=== PATIENT | male | born 1935 | race Caucasian/White ===

== ENCOUNTER 2018-03-04 07:36 | Day surgery (SDC) | payer MEDICARE ==
[2018-02-25 15:30] VITALS: BMI 21.4
[~2018-03-04 07:36] MED LIST: LACTATED RINGERS 1,000 ML IV SCH
[2018-03-04] MEDS: CYCLOPENTOLATE 1% OPHTH SOLN 2 ML BTL OP ONE ×3 (08:47→09:07)
[2018-03-04] MEDS: PHENYLEPHRINE 10% OPHTH DROPS 5 ML BTL OP ONE ×3 (08:51→09:11)
[2018-03-04] MEDS: KETOROLAC 0.5% OPHTH DROPS 5 ML BTL OP ONE ×3 (08:54→09:14)
[2018-03-04] MEDS ORDERED: LIDOCAINE 1% 20 ML VIAL (10MG/ML) FOR IV START INTRADERMA ONE (08:56)
[2018-03-04 08:59] VITALS: PULSE 60; RESP 16; TEMP 97.6
[2018-03-04 08:59] LABS: Glucose,Whole Blood 130 mg/dL (75-99)
[2018-03-04] MEDS ORDERED: PROPOFOL 10 MG/ML 20 ML VIAL IV ONE (09:38)
[2018-03-04] MEDS ORDERED: HYALURONATE SODIUM INTRAOCULAR 1 EACH SYRINGE (10MG/ML) INTRAOCULA ONE (09:39)
[2018-03-04] MEDS ORDERED: BALANCED SALT IRRIG SOLN COMB2 15 ML IRRIG.SOLN IRRIGATION ONE (09:39)
[2018-03-04] MEDS ORDERED: EPINEPHrine (PF) 0.5 ML in BALANCED SALT IRRIG SOLN COMB2 500 ML IRRIGATION ONE (09:40)
--- NOTE | 2018-03-04 10:02 | P.OP ---
Date of Procedure: 03/04/18 Procedure(s) Performed: PREOPERATIVE DIAGNOSIS: Cataract, left eye. POSTOPERATIVE DIAGNOSIS: Cataract, left eye. OPERATION: Phacoemulsification cataract, left eye. DESCRIPTION OF PROCEDURE: The patient was taken to the preoperative holding area. Intravenous Propofol was given so as to bring about adequate sedation. The following mixture was given for local anesthesia: 5 mL of 2% lidocaine, 5 mL of 0.75% Marcaine, and 1 mL of Wydase. Approximately 4 mL was injected in the retrobulbar space of the surgical eye. Additional 1 mL was then directed to the temporal area of the surgical eye. This was performed to allow adequate neurological block of the facial muscles. The patient was revived and then taken into the operative room. The patient was prepped and draped in the usual sterile manner for the operative eye. A lid speculum was put into position. The conjunctiva was resected back from the limbus in the 12 o'clock position. Bleeding was controlled with electrocautery. A #69 blade was then used and a half-thickness scleral incision approximately 1-mm posterior to the limbus was made on bare sclera. This was shelved in the clear cornea using a crescent knife. Next a 15-degree blade was used to make a stab incision at the 3 o' clock position at the corneolimbal interface. Keratome blade was then used and the superior wound was extended into the anterior chamber. Viscoelastic was injected into the anterior chamber and to maintain its form. Next, a cystotome was used and a continuous anterior capsulotomy was made without difficulty. Hydrodissection using a blunt cannula and BSS was performed. Phaco probe was then employed and a groove extending from 12 to 6 o'clock in the lens was created. A Austin wand was used through the stab incision so as to perform a divide and conquer technique. Next an irrigation aspiration probe was utilized and any residual cortex was removed from the eye. Again, viscoelastic was injected into the anterior chamber. An Nicoáls posterior chamber lens implant was placed in the cartridge and injected into the anterior chamber without difficulty. The [employer] Limited[employer] hook was utilized to spin the lens into position and this was again performed without any difficulty. The irrigation and aspiration probe was again employed and any residual viscoelastic was removed from the eye. Then BSS was injected into the limbal stab incision and the anterior chamber re-inflated. The conjunctiva was reapproximated using electrocautery. One drop of 0.25% Timoptic was placed over the corneal along with TobraDex ophthalmic ointment. Two sterile patches and a Ortiz eye shield were taped into position. The patient was transported to the recovery room in stable condition. Pathology: none sent Condition: stable Disposition: same day
[2018-03-04 10:27] VITALS: BP 147/74
[2018-03-04] MEDS ORDERED: GENTAMICIN/PREDNISOL AC OPHTH OINT 3.5GM OPHTHALMIC ONE (23:00)
[2018-03-04] MEDS ORDERED: TIMOLOL 0.5% OPHTH DROPS 5 ML BTL OP ONE (23:00)
[2018-03-04] MEDS ORDERED: BUPIVACAINE (PF) 0.75% 5 ML, HYALURONIDASE, HUMAN RECOMB 150 UNIT, LIDOCAINE 2% (PF) 10... MISCELLANE ONE ×3 (23:00)
== END 2018-03-04 11:00 | disposition home or self-care (01) ==
LOC: OR 07:36
PROVIDERS: ATTEND Ophthalmology
DX: H26.9 Unspecified cataract (principal); E11.9 Type 2 diabetes mellitus without complications; I11.0 Hypertensive heart disease with heart failure; I50.9 Heart failure, unspecified; Z88.1 Allergy status to other antibiotic agents; Z83.3 Family history of diabetes mellitus; Z95.0 Presence of cardiac pacemaker; Z79.01 Long term (current) use of anticoagulants; Z79.899 Other long term (current) drug therapy
CPT/HCPCS: 66984; V2632; J3470; J2001; J0171; J2704

== ENCOUNTER → 2020-10-10 | Outpatient (CLI) | payer MEDICARE | END | disposition home or self-care (01) | LOC: LABWHC1 13:45 | PROVIDERS: ATTEND Urology | DX: R97.20 Elevated prostate specific antigen [PSA] (principal) | CPT/HCPCS: 36415; 84153 ==

== ENCOUNTER → 2021-10-04 | Outpatient (CLI) | payer MEDICARE ==
--- NOTE | 2021-10-04 16:49 | XR ---
EXAMINATION TYPE: XR chest 2V DATE OF EXAM: 10/04/2021 COMPARISON: Prior chest x-ray November 07, 2018 HISTORY: Increasing shortness of breath with exertion TECHNIQUE: Frontal and lateral views of the chest are obtained. FINDINGS: Cardiac silhouette size remains within normal limits. Multi lead pacemaker redemonstrated. New small right pleural effusion including fluid extending into the major fissure in the right lower lobe airspace opacity on 2 views . Left lung is clear without pleural effusion. Underlying scoliosis is present. IMPRESSION: New small right pleural effusion with right lower lobe acute infiltrate and/or atelectas is.
== END | disposition home or self-care (01) ==
LOC: RADXRMAIN 16:27
PROVIDERS: ATTEND Internal Medicine
DX: J90 Pleural effusion, not elsewhere classified (principal); R91.8 Other nonspecific abnormal finding of lung field
CPT/HCPCS: 71046

== ENCOUNTER → 2021-10-30 | Outpatient (CLI) | payer MEDICARE ==
--- NOTE | 2021-10-31 18:27 | CA ---
Transthoracic Echo Report Name: Franklin Campuzano Age: 86 Gender: M : 1935 Exam Date: 10/30/2021 15:01 Exam Location: [facility] Ht (in): 77 Wt (lb): 177 Ordering Physician: Wanda Hou MD Attending/Referring Phys: Wanda Hou MD Senior Analyst Lisset Anton RDCS Procedure CPT: Indications: I42.0 Dilated Cardiomyopathy Cardiac Hx: No cardiac hx Technical Quality: Very technically difficult study Contrast 1: Lumason Total Dose (mL): 1 Contrast 2: Total Dose (mL): MEASUREMENTS (Male / Female) Normal Values 2D ECHO LV Diastolic Diameter PLAX 3.8 cm 4.2 - 5.9 / 3.9 - 5.3 cm LV Systolic Diameter PLAX 2.5 cm IVS Diastolic Thickness 1.1 cm 0.6 - 1.0 / 0.6 - 0.9 cm LVPW Diastolic Thickness 1.2 cm 0.6 - 1.0 / 0.6 - 0.9 cm LV Relative Wall Thickness 0.6 FINDINGS Left Ventricle Left ventricular ejection fraction is estimated at 55-60 %. Left ventricular cavity size normal. Lumason used to visualize wall motion. Right Ventricle Right ventricle not well visualized. Right Atrium Right atrium not well visualized. Left Atrium Left atrium not well visualized. Mitral Valve Mitral valve not well visualized. Aortic Valve Aortic valve not well visualized. Tricuspid Valve Tricuspid valve not well visualized. Pulmonic Valve Pulmonic valve not well visualized. Pericardium No pericardial effusion. Aorta Aortic root and proximal ascending aorta not well visualized. CONCLUSIONS Technically difficult study with limited views. Echo contrast was used and systolic function is normal. Other cardiac structures are not well visualized. Cannot comment upon the rest of the structures Previewed by: Dr. West Valentin MD (Electronically Signed) Final Date: 31 October 2021 18:26
== END | disposition home or self-care (01) ==
LOC: RADECHMAIN 14:56
PROVIDERS: ATTEND Internal Medicine
DX: I42.0 Dilated cardiomyopathy (principal)
CPT/HCPCS: C8929; Q9950; 93306

== ENCOUNTER 2022-01-25 19:28 | Emergency (ER) | payer MEDICARE ==
[2022-01-25] MEDS ORDERED: DEXAMETHASONE SOD PHOSPHATE 10 MG/ML 1 ML VIAL IM STA (21:23)
[2022-01-25] MEDS ORDERED: IBUPROFEN 800 MG TAB PO STA (21:23)
[2022-01-25] MEDS ORDERED: ACETAMINOPHEN TAB 500 MG TAB PO STA (21:23)
--- NOTE | 2022-01-25 21:36 | ED ---
Recheck HPI - General Chief Complaint: Recheck/Abnormal Lab/Rx Stated Complaint: COVID + Time Seen by Provider: 01/25/22 21:21 Source: patient, RN notes reviewed, old records reviewed Mode of arrival: ambulatory Limitations: no limitations - History of Present Illness Initial Comments: This is a 76-year-old male DF for evaluation. Patient has multiple comorbidities. Patient presents with positive coronavirus testing today in with symptoms DF for possible antibiotic treatment. Patient is relatively no symptoms feels well low grade fever with some chills and bodyaches currently. Positive outside sick contact, currently asymptomatic MD Complaint: abnormal lab (positive COVID) -: days(s) (1) Returns Today for: Called Because of Abnormal Lab/Test, request for prescription, persistent/worsening pain related to initial visit Symptoms Since Prior Visit: fever Context: planned re-check Associated Symptoms: fever, chills Treatments Prior to Arrival: other (0) - Related Data Home Medications Medication Instructions Recorded Confirmed Multivitamin [Men's Multi-Vitamin] 1 tab PO AC-SUPPER 10/16/13 11/07/18 Pravastatin Sodium [Pravachol] 20 mg PO HS 10/16/13 11/07/18 Rivaroxaban [Xarelto] 20 mg PO AC-SUPPER 10/16/13 11/07/18 glipiZIDE [Glucotrol XL] 2.5 mg PO QAM 10/16/13 11/07/18 Fludrocortisone [Florinef] 0.05 mg PO DAILY 02/25/18 11/07/18 Acetaminophen Tab [Tylenol] 1,000 mg PO Q6HR PRN 11/07/18 11/07/18 Bifidobacterium Infantis [Align] 4 mg PO BID 11/07/18 11/07/18 Previous Rx's Medication Instructions Recorded Cefdinir [Omnicef] 300 mg PO Q12HR #8 capsule 11/09/18 Ondansetron Odt [Zofran Odt] 4 mg PO Q8HR PRN #30 tab 01/25/22 dexAMETHasone [Decadron] 6 mg PO DAILY #4 tablet 01/25/22 Allergies Allergy/AdvReac Type Severity Reaction Status Date / Time amoxicillin trihydrate AdvReac WEAKNESS, Verified 01/25/22 21:17 [From Augmentin] TIRED - AFTER BEING ON FOR SOME TIME ciprofloxacin [From Cipro] AdvReac Unknown Verified 01/25/22 21:17 potassium clavulanate AdvReac WEAKNESS, Verified 01/25/22 21:17 [From Augmentin] TIRED - AFTER BEING ON FOR SOME TIME Review of Systems ROS Statement: Those systems with pertinent positive or pertinent negative responses have been documented in the HPI. ROS Other: All systems not noted in ROS Statement are negative. 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 History of Any Multi-Drug Resistant Organisms: None Reported Past Surgical History: Cardiac Ablation, Heart Catheterization, Pacemaker, Prostate Surgery Additional Past Surgical History / Comment(s): GULSHAN, cardioversion, cardiac abl ation for aflutter, TURP, skin cancer removals, colonoscopy, bilateral cataract removals/lens implants. Past Anesthesia/Blood Transfusion Reactions: No Reported Reaction Additional Past Anesthesia/Blood Transfusion Reaction / Comment(s): PATIENT STATES RX GIVEN FOR ANXIETY PRIOR TO CATH DIDN'T HELP Type of Cardiac Device: Permanent Pacemaker Device Placement Date:: 02-01-15 Past Psychological History: No Psychological Hx Reported Smoking Status: Never smoker Past Alcohol Use History: Occasional Past Drug Use History: None Reported - Past Family History Father Family Medical History: Coronary Artery Disease (CAD) Additional Family Medical History / Comment(s): Father at the age of 76yrs. Mother Additional Family Medical History / Comment(s): ASHD, rheumatic heart disease. Mother at the age of 85 yrs. General Exam Limitations: no limitations General appearance: alert, in no apparent distress Head exam: Present: atraumatic, normocephalic, normal inspection Eye exam: Present: normal appearance, PERRL, EOMI. Absent: scleral icterus, conjunctival injection, periorbital swelling ENT exam: Present: normal exam, mucous membranes moist Neck exam: Present: normal inspection. Absent: tenderness, meningismus, lymphadenopathy Respiratory exam: Present: normal lung sounds bilaterally. Absent: respiratory distress, wheezes, rales, rhonchi, stridor Cardiovascular Exam: Present: regular rate, normal rhythm, normal heart sounds. Absent: systolic murmur, diastolic murmur, rubs, gallop, clicks GI/Abdominal exam: Present: soft, normal bowel sounds. Absent: distended, tenderness, guarding, rebound, rigid Extremities exam: Present: normal inspection, full ROM, normal capillary refill. Absent: tenderness, pedal edema, joint swelling, calf tenderness Back exam: Present: normal inspection Neurological exam: Present: alert, oriented X3, CN II-XII intact Psychiatric exam: Present: normal affect, normal mood Skin exam: Present: warm, dry, intact, normal color. Absent: rash Course Vital Signs 01/25/22 21:15 Temperature 100.0 F H Pulse Rate 100 Respiratory 20 Rate Blood Pressure 123/66 O2 Sat by Pulse 98 Oximetry - Reevaluation(s) Reevaluation #1: 01/25/22 21:39 Medical records reviewed Reevaluation #2: 01/25/22 21:39 Patient spoke with at length regarding proceeding antibodies, currently will supply reserve for women. Patient is informed of this, he is okay with being discharged home on Paxil over the following up with primary care. Reevaluation #3: 01/25/22 21:39 Patient's relatively recent medication the ER no distress Reevaluation #4: 01/25/22 21:39 Patient informed results and questions answered Medical Decision Making - Medical Decision Making 86 male to the emergency department for evaluation positive coronavirus test. Patient will be treated with outpatient antivirals and can be discharged home - Radiology Data Radiology results: report reviewed (Chest x-rays no BL pna, small r pleural effusion maybe infiltrate), image reviewed Disposition Clinical Impression: Coronavirus infection, Fever Disposition: HOME SELF-CARE Condition: Good Instructions (If sedation given, give patient instructions): Coronavirus Disease 2019 (COVID-19) Prescriptions: dexAMETHasone [Decadron] 6 mg PO DAILY #4 tablet Ondansetron Odt [Zofran Odt] 4 mg PO Q8HR PRN #30 tab PRN Reason: Nausea Is patient prescribed a controlled substance at d/c from ED?: No Referrals: Wanda Hou MD [Primary Care Provider] - 1-2 days Time of Disposition: 22:30
--- NOTE | 2022-01-25 21:58 | XR ---
EXAMINATION TYPE: XR chest 1V portable DATE OF EXAM: 01/25/2022 COMPARISON: Chest x-ray October 04, 2021 HISTORY: COVID. TECHNIQUE: Single AP portable frontal upright view of the chest is obtained. FINDINGS: There is elevated left hemidiaphragm redemonstrated. Small right pleural effusion is seen with associated right basilar opacity. The cardiac silhouette size is stable and within normal limit s. Multi lead pacemaker redemonstrated. The osseous structures remain intact. IMPRESSION: Small right pleural effusion with right basilar acute infiltrate and/or atelectasis.
[2022-01-25 23:12] VITALS: BP 128/73; PULSE 85; RESP 16; TEMP 101
== END 2022-01-25 23:12 | disposition home or self-care (01) ==
LOC: EC 19:28
DX: U07.1 COVID-19 (principal); E11.9 Type 2 diabetes mellitus without complications; E78.5 Hyperlipidemia, unspecified; Z88.0 Allergy status to penicillin; Z88.3 Allergy status to other anti-infective agents; Z88.8 Allergy status to other drugs, medicaments and biological substances
CPT/HCPCS: 71045; 99283; 96372; J1100

== ENCOUNTER → 2022-02-21 | Outpatient (CLI) | payer MEDICARE ==
--- NOTE | 2022-02-21 10:58 | FL ---
Fluoroscopy INDICATION: Pain, short of breath pleural effusion FINDINGS: Fluoroscopy time: 31 seconds. Images obtained: 0. Real-time observation was performed. The right diaphragm has limited excursion. With active sniffing there is some mild paradoxical motion. IMPRESSIONS: 1. Paradoxical motion with sniffing and limited excursion with quiet breathing of the right diaphragm . Right diaphragm paralysis should be considered.
== END | disposition home or self-care (01) ==
LOC: RADFLMAIN 10:25
PROVIDERS: ATTEND Internal Medicine
DX: J90 Pleural effusion, not elsewhere classified (principal); R06.09 Other forms of dyspnea
CPT/HCPCS: 76000

== ENCOUNTER → 2022-04-19 | Outpatient (CLI) | payer MEDICARE ==
--- NOTE | 2022-04-19 14:23 | CT ---
EXAMINATION TYPE: CT ChestAbdPelvis w con DATE OF EXAM: 04/19/2022 COMPARISON: None HISTORY: Abnormal weight loss. CT DLP: 1662 mGycm CONTRAST: CT scan of the chest, abdomen and pelvis is performed with Oral Contrast and with IV Contrast, patien t injected with 70ml mL of Isovue 300. CT Chest: LUNGS: There is loculated right basilar pleural effusion measuring 8.6 x 4.0 cm. There is nonspecific soft tissue component measuring 4.0 x 2.6 cm with a solitary focus of internal calcification. This c ould reflect an area of atelectasis however underlying mass is not excluded. Is also nodular thickeni ng of the right diaphragm (see coronal data set 43 of 72). The lungs demonstrate hyperinflation clari tible with COPD. Right upper lobe parenchymal scarring. Left lung is clear. MEDIASTINUM: Thoracic aorta is of normal caliber. The heart is not enlarged. No evidence for media stinal mass or adenopathy. HILAR STRUCTURES: No evidence for mass. No hilar adenopathy is appreciated. OTHER: No significant abnormality. CONTRAST CT ABDOMEN AND PELVIS FINDINGS: LIVER/GB: No calcified gallstones. No space occupying hepatic lesion. Biliary tree is of normal ca liber. PANCREAS: No inflammation. No distinct mass. SPLEEN: No splenic enlargement. No lesion seen. ADRENALS: No nodule. No thickening. KIDNEYS/BLADDER: No hydronephrosis. No nephrolithiasis. No distinct solid renal mass. 4.2 cm left renal cyst. BOWEL: Normal appendix. Normal bowel caliber. No inflammation. GENITAL ORGANS: Prostate gland enlargement and central calcifications. LYMPH NODES: No greater than 1cm abdominal or pelvic lymph nodes are appreciated. AORTA: No significant abnormality. OSSEOUS STRUCTURES: No significant abnormality is seen. OTHER: No significant additional abnormality is seen. IMPRESSION: 1. Loculated right basilar pleural effusion with nodular thickening of the diaphragm and soft tissue components seen. Underlying malignancy not excluded.
== END | disposition home or self-care (01) ==
LOC: RADCTMAIN 11:58
PROVIDERS: ATTEND Family Medicine
DX: J90 Pleural effusion, not elsewhere classified (principal); J98.6 Disorders of diaphragm; R63.4 Abnormal weight loss
CPT/HCPCS: 82565; 84520; 71260; 74177; 36415; Q9967

== ENCOUNTER 2023-03-19 13:17 | Day surgery (SDC) | payer MEDICARE ==
[2023-03-18 09:51] VITALS: BMI 19.5
[~2023-03-19 13:17] MED LIST changes: -LACTATED RINGERS 1,000 ML IV SCH; +SODIUM CHLORIDE 0.9% 1,000 ML IV SCH
[2023-03-19] MEDS ORDERED: SODIUM CHLORIDE 0.9% 1,000 ML IV ONE (13:44)
[2023-03-19 13:56] LABS: Glucose,Whole Blood 139 mg/dL (70-110)
[2023-03-19 14:08] LABS: Basophils % (A) 0 %; Eosinophils # (A) 0.1 k/uL (0-0.7); Eosinophils % (A) 2 %; HCT 44.1 % (39.0-53.0); HGB 13.9 gm/dL (13.0-17.5); Hypochromasia Slight; Lymphocytes # (A) 1.5 k/uL (1.0-4.8); Lymphocytes % (A) 21 %; MCH 27.6 pg (25.0-35.0); MCHC 31.5 g/dL (31.0-37.0); MCV 87.6 fL (80.0-100.0); Mean Platelet Volume 8.2; Monocytes # (A) 0.4 k/uL (0-1.0); Monocytes % (A) 5 %; Neutrophils # (A) 5.1 k/uL (1.3-7.7); Neutrophils % (A) 70 %; Platelet Count 171 k/uL (150-450); RBC 5.04 m/uL (4.30-5.90); RDW 14.4 % (11.5-15.5); WBC 7.3 k/uL (3.8-10.6)
[2023-03-19] MEDS ORDERED: CLINDAMYCIN 900 MG in DEXTROSE 5% IN WATER 50 ML IVPB PRN ×2 (14:22)
[2023-03-19 14:28] LABS: African American GFR (CKD) 69 (>60 ml/min/1.73 sqM); Anion Gap 10 mmol/L; Blood Urea Nitrogen 27 mg/dL (9-20); Calcium 9.5 mg/dL (8.4-10.2); Carbon Dioxide 28 mmol/L (22-30); Chloride 104 mmol/L (98-107); Glucose 154 mg/dL (74-99); Non-African American GFR(CKD) 60 (>60 ml/min/1.73 sqM); Potassium 4.5 mmol/L (3.5-5.1); Sodium 142 mmol/L (137-145)
[2023-03-19] MEDS ORDERED: SODIUM CHLORIDE 0.9% 1,000 ML IV SCH ×2 (14:30)
[2023-03-19] MEDS ORDERED: CLINDAMYCIN 600 MG in SODIUM CHLORIDE 0.9% 250 ML IRRIGATION PRN (14:30)
[2023-03-19] MEDS ORDERED: MIDAZOLAM 2 MG/2 ML VIAL ONE (16:19)
[2023-03-19] MEDS ORDERED: fentaNYL (PF) 50 MCG/ML 2 ML AMP ONE (16:19)
[2023-03-19] MEDS ORDERED: LIDOCAINE 1% INJ 10MG/ML (20 ML MDV) ONE (16:22)
[2023-03-19] MEDS ORDERED: ACETAMINOPHEN TAB 325 MG TAB PO PRN (16:26)
[2023-03-19] MEDS ORDERED: ACETAMINOPHEN IV (For NPO) 1,000 MG in EMPTY BAG 1 BAG IVPB ONE (16:26)
[2023-03-19] MEDS ORDERED: MELATONIN 5 MG TABLET PO PRN (16:45)
[2023-03-19] MEDS ORDERED: LIDOCAINE 1% INJ 10MG/ML (20 ML MDV) SQ ONE ×2 (17:01)
[2023-03-19] MEDS ORDERED: VANCOMYCIN 1,250 MG in SODIUM CHLORIDE 0.9% 250 ML IVPB ONE (17:27)
[2023-03-19] MEDS ORDERED: METOPROLOL SUCCINATE (ER) 25 MG TAB.ER.24H PO SCH (17:30)
--- NOTE | 2023-03-19 17:31 | P.EPPROC ---
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 Written informed consent was obtained prior to the procedure. Conscious sedation provided by anesthesia team IV antibiotics administered. Local anesthesia administered. A 4 cm incision made in the pectoral area. Subfascial pocket opened and partial capsulectomy performed. Chronic Atrial lead position the right atrial appendage. Fluoroscopically stable, no fractures P waves greater than 5 mV, pacing threshold 0.75 V at 0.4 ms and pacing impedance of 460 ohms Chronic RV lead position in the RV apex. Fluoroscopically stable no fractures No R waves. Pacing threshold 0.75 V at 0.4 ms pacing impedance of 530 ohms Chronic LV lead positioned in the anterior lateral LV vein, no fractures No R waves pacing threshold 1.25 V at 0.4 ms, pacing impedance of 740 ohms Old biventricular pacemaker generator explanted The pacemaker generator implanted, [employer] MP PARA MACHINE OPERATOR-P Device programmed DDD 60 bpm LV offset 25 ms Paced AV delay 200 ms
[2023-03-19] MEDS ORDERED: PRAVASTATIN SODIUM 20 MG TAB PO SCH (21:00)
[2023-03-19] MEDS ORDERED: CLINDAMYCIN 900 MG in DEXTROSE 5% IN WATER 50 ML IVPB SCH ×2 (21:00)
[2023-03-19] MEDS ORDERED: MIRTAZAPINE 15 MG TAB PO SCH (21:00)
[2023-03-20 04:38] VITALS: TEMP 98.4
--- NOTE | 2023-03-20 07:50 | P.DS ---
Providers Attending physician: Rohit Umanzor Primary care physician: Nestor Harris MD Hospital Course: Patient is doing well. Resting comfortably in bed No hematoma, no stroke age of the dressing On examination pulse rate in the 60s to 80s, blood pressure normal 120 707 4 mmHg Impression Biventricular pacemaker generator change for device at [facility] Status post AV node ablation in the past Status post biventricular pacemaker in the past By ventricle pacemaker leads are functioning normally Plan Continue current medications without any changes Discharge home later this morning and follow-up in the device clinic in one week in follow-up with Dr. Valentin as scheduled Plan - Discharge Summary Discharge Rx Participant: No New Discharge Prescriptions: No Action Rivaroxaban [Xarelto] 20 mg PO W/SUPPER Pravastatin Sodium [Pravachol] 20 mg PO HS Multivitamin [Men's Multi-Vitamin] 1 tab PO DAILY Fludrocortisone [Florinef] 0.1 mg PO DAILY Mirtazapine 15 mg PO HS Melatonin 5 mg PO HS PRN PRN Reason: Insomnia Metoprolol Succinate [Metoprolol Succinate ER] 25 mg PO W/SUPPER sitaGLIPtin [Januvia] 100 mg PO DAILY Iron (Unknown Dose) 1 dose PO DAILY Cholecalciferol [Vitamin D3 (25 Mcg = 1000 Iu)] 25 mcg PO DAILY L.acidoph,Paracasei, B.lactis [Probiotic] 1 each PO DAILY Farxiga (Unknown Dose) 1 dose PO DAILY Discharge Medication List Multivitamin [Men's Multi-Vitamin] 1 tab PO DAILY 10/16/13 [History] Pravastatin Sodium [Pravachol] 20 mg PO HS 10/16/13 [History] Rivaroxaban [Xarelto] 20 mg PO W/SUPPER 10/16/13 [History] Fludrocortisone [Florinef] 0.1 mg PO DAILY 02/25/18 [History] Cholecalciferol [Vitamin D3 (25 Mcg = 1000 Iu)] 25 mcg PO DAILY 02/22/23 [History] Melatonin 5 mg PO HS PRN 02/22/23 [History] Metoprolol Succinate [Metoprolol Succinate ER] 25 mg PO W/SUPPER 02/22/23 [History] Mirtazapine 15 mg PO HS 02/22/23 [History] sitaGLIPtin [Januvia] 100 mg PO DAILY 02/22/23 [History] Farxiga (Unknown Dose) 1 dose PO DAILY 03/18/23 [History] Iron (Unknown Dose) 1 dose PO DAILY 03/18/23 [History] L.acidoph,Paracasei, B.lactis [Probiotic] 1 each PO DAILY 03/18/23 [History] Follow up Appointment(s)/Referral(s): Rohit Umanzor MD [STAFF PHYSICIAN] - 03/26/23 4:00 pm (DEVICE CLINIC March AT 4PM FOR SITE CHECK ) Patient Instructions/Handouts: Pacemaker Generator Change (DC)
[2023-03-20] MEDS ORDERED: FLUDROCORTISONE 0.1 MG TAB PO SCH (09:00)
[2023-03-20] MEDS ORDERED: LINAGLIPTIN 5 MG TABLET PO SCH (09:00)
[2023-03-20 09:16] VITALS: BP 133/67; PULSE 83; RESP 17
== END 2023-03-20 12:06 | disposition home or self-care (01) ==
LOC: CATHEP 13:17 → 6NMEDSUR 17:32 → CATHEP 03-20 12:06
PROVIDERS: ATTEND Internal Medicine Clinical Cardiac Electrophysiology
DX: I44.2 Atrioventricular block, complete (principal); E11.9 Type 2 diabetes mellitus without complications; E78.5 Hyperlipidemia, unspecified; Z95.0 Presence of cardiac pacemaker; Z79.01 Long term (current) use of anticoagulants; Z79.899 Other long term (current) drug therapy
CPT/HCPCS: 33229; 80048; 85025; C2621; J2250; J3370; J2001; J3010; J0736

== ENCOUNTER 2023-07-06 18:05 | Emergency (ER) | payer MEDICARE ==
--- NOTE | 2023-07-06 18:42 | ED ---
Recheck HPI - General Chief Complaint: Recheck/Abnormal Lab/Rx Stated Complaint: low bp weakness Time Seen by Provider: 07/06/23 18:26 Source: patient, RN notes reviewed, old records reviewed Mode of arrival: ambulatory Limitations: no limitations - History of Present Illness Initial Comments: This is a 7-year-old male brought in for evaluation of low blood pressure and weakness. Patient is a moderately poor historian history obtained from record, patient has no headache chest pain shortness of breath abdominal pain. No recent change in medications or travel history or sick contacts. Patient has run low blood pressure in the past and does not marginally have a low blood pressure. He is without fever no nausea vomiting or diarrhea MD Complaint: other (Low blood pressure) -: days(s) Symptoms Since Prior Visit: no new symptoms Associated Symptoms: none Treatments Prior to Arrival: other (0) - Related Data Home Medications Medication Instructions Recorded Confirmed Multivitamin [Men's Multi-Vitamin] 1 tab PO DAILY 10/16/13 03/18/23 Pravastatin Sodium [Pravachol] 20 mg PO HS 10/16/13 03/18/23 Rivaroxaban [Xarelto] 20 mg PO W/SUPPER 10/16/13 03/19/23 Fludrocortisone [Florinef] 0.1 mg PO DAILY 02/25/18 03/19/23 Cholecalciferol [Vitamin D3 (25 25 mcg PO DAILY 02/22/23 03/18/23 Mcg = 1000 Iu)] Melatonin 5 mg PO HS PRN 02/22/23 03/18/23 Metoprolol Succinate [Metoprolol 25 mg PO W/SUPPER 02/22/23 03/18/23 Succinate ER] Mirtazapine 15 mg PO HS 02/22/23 03/18/23 sitaGLIPtin [Januvia] 100 mg PO DAILY 02/22/23 03/18/23 Farxiga (Unknown Dose) 1 dose PO DAILY 03/18/23 Iron (Unknown Dose) 1 dose PO DAILY 03/18/23 L.acidoph,Paracasei, B.lactis 1 each PO DAILY 03/18/23 03/18/23 [Probiotic] Allergies Allergy/AdvReac Type Severity Reaction Status Date / Time amoxicillin trihydrate AdvReac WEAKNESS, Verified 07/06/23 18:21 [From Augmentin] TIRED - AFTER BEING ON FOR SOME TIME ciprofloxacin [From Cipro] AdvReac Unknown Verified 07/06/23 18:21 potassium clavulanate AdvReac WEAKNESS, Verified 07/06/23 18:21 [From Augmentin] TIRED - AFTER BEING ON FOR SOME TIME Review of Systems ROS Statement: Those systems with pertinent positive or pertinent negative responses have been documented in the HPI. ROS Other: All systems not noted in ROS Statement are negative. Past Medical History Past Medical History: Atrial Fibrillation, Atrial Flutter, Hypertension Additional Past Medical History / Comment(s): SEE DR SNYDER'S H&P. 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 History of Any Multi-Drug Resistant Organisms: C-DIFF Date of last positivie culture/infection: 2014 MDRO Source:: STOOL Past Surgical History: Cardiac Ablation, Heart Catheterization, Pacemaker, Prostate Surgery Additional Past Surgical History / Comment(s): GULSHAN, cardioversion, cardiac ablation for aflutter, TURP, skin cancer removals, colonoscopy, bilateral cataract removals/lens implants. Past Anesthesia/Blood Transfusion Reactions: No Reported Reaction Additional Past Anesthesia/Blood Transfusion Reaction / Comment(s): . Type of Cardiac Device: Permanent Pacemaker Device Placement Date:: 02-01-15 Past Psychological History: No Psychological Hx Reported Smoking Status: Never smoker Past Alcohol Use History: None Reported Past Drug Use History: None Reported - Past Family History Father Family Medical History: Coronary Artery Disease (CAD) Additional Family Medical History / Comment(s): Father at the age of 76yrs. Mother Additional Family Medical History / Comment(s): ASHD, rheumatic heart disease. Mother at the age of 85 yrs. General Exam Limitations: no limitations General appearance: alert, in no apparent distress Head exam: Present: atraumatic, normocephalic, normal inspection Eye exam: Present: normal appearance, PERRL, EOMI. Absent: scleral icterus, conjunctival injection, periorbital swelling ENT exam: Present: normal exam, mucous membranes moist Neck exam: Present: normal inspection. Absent: tenderness, meningismus, lymphadenopathy Respiratory exam: Present: normal lung sounds bilaterally. Absent: respiratory distress, wheezes, rales, rhonchi, stridor Cardiovascular Exam: Present: regular rate, normal rhythm, normal heart sounds. Absent: systolic murmur, diastolic murmur, rubs, gallop, clicks GI/Abdominal exam: Present: soft, normal bowel sounds. Absent: distended, tenderness, guarding, rebound, rigid Extremities exam: Present: normal inspection, full ROM, normal capillary refill. Absent: tenderness, pedal edema, joint swelling, calf tenderness Back exam: Present: normal inspection Neurological exam: Present: alert, oriented X3, CN II-XII intact Psychiatric exam: Present: normal affect, normal mood Skin exam: Present: warm, dry, intact, normal color. Absent: rash Course Vital Signs 07/06/23 07/06/23 07/06/23 18:19 18:41 20:05 Temperature 98.1 F Pulse Rate 110 H 108 H 96 Respiratory 20 18 16 Rate Blood Pressure 97/60 103/73 139/88 O2 Sat by Pulse 99 99 100 Oximetry 07/06/23 20:32 Temperature 98.1 F Pulse Rate 100 Respiratory 18 Rate Blood Pressure 146/87 O2 Sat by Pulse 100 Oximetry - Reevaluation(s) Reevaluation #1: Medical records reviewed Reevaluation #2: Patient symptoms unchanged Reevaluation #3: Patient informed of results questions answered Reevaluation #4: Was pt. sent in by a medical professional or institution (, PA, NUT DEHYDRATOR OPERATOR, urgent care, hospital, or jail...) When possible be specific @ -no Did you speak to anyone other than the patient for history (EMS, parent, family, police, friend...)? What history was obtained from this source @ -no Did you review nursing and triage notes (agree or disagree)? Why? @ -agree Are old charts reviewed (outside hosp., previous admission, EMS record, old EKG, old radiological studies, urgent care reports/EKG's, jail records)? Report findings @ -yes Differential Diagnosis (chest pain, altered mental status, abdominal pain women, abdominal pain men, vaginal bleeding, weakness, fever, dyspnea, syncope, headache, dizziness, GI bleed, back pain, seizure, CVA, palpatations, mental health, musculoskeletal)? @ -prior EKG interpreted by me (3pts min.). @ -yes X-rays interpreted by me (1pt min.). @ -yes negative for acute disease CT interpreted by me (1pt min.). @ -no U/S interpreted by me (1pt. min.). @ -no What testing was considered but not performed or refused? (CT, X-rays, U/S, labs)? Why? @ -none What meds were considered but not given or refused? Why? @ -none Did you discuss the management of the patient with other professionals (professionals i.e. DrYarelis, PA, NUT DEHYDRATOR OPERATOR, lab, RT, psych nurse, social economist, teletype or varitype keyboard operator, teacher, worldwide chief creative officer, case management assistant)? Give summary @ -no Was smoking cessation discussed for >3mins.? @ -no Was critical care preformed (if so, how long)? @ -no Were there social determinants of health that impacted care today? How? (H omelessness, low income, unemployed, alcoholism, drug addiction, transportation, low edu. Level, literacy, decrease access to med. care, half-way, rehab)? @ -none Was there de-escalation of care discussed even if they declined (Discuss DNR or withdrawal of care, Hospice)? DNR status @ -no What co-morbidities impacted this encounter? (DM, HTN, Smoking, COPD, CAD, Cancer, CVA, ARF, Chemo, Hep., AIDS, mental health diagnosis, sleep apnea, morbid obesity)? @ -none Was patient admitted / discharged? Hospital course, mention meds given and route, prescriptions, significant lab abnormalities, going to OR and other pertinent info. @ - 87 male to ER for evaluation of low blood pressure and weakness at home. Patient's blood pressure has self-correct here in the ER he feels well normal lab testing can be discharged home Discharge Undiagnosed new problem with uncertain prognosis? @ -no Drug Therapy requiring intensive monitoring for toxicity (Heparin, Nitro, Insulin, Cardizem)? @ -no Were any procedures done? @ -no Diagnosis/symptom? @ -Weakness low blood pressure Acute, or Chronic, or Acute on Chronic? @ -Acute Uncomplicated (without systemic symptoms) or Complicated (systemic symptoms)? @ -Complicated Side effects of treatment? @ -no Exacerbation, Progression, or Severe Exacerbation? @ -exacerbation Poses a threat to life or bodily function? How? (Chest pain, USA, SC, pneumonia, PE, COPD, DKA, ARF, appy, cholecystitis, CVA, Diverticulitis, Homicidal, Suicidal, threat to staff... and all critical care pts) @ -yes with extremes of age Medical Decision Making - Medical Decision Making 87 male to ER for evaluation of low blood pressure and weakness at home. Patient's blood pressure has self-correct here in the ER he feels well normal lab testing can be discharged home - Lab Data Result diagrams: 07/06/23 19:18 07/06/23 19:18 Lab Results 07/06/23 07/06/23 07/06/23 Range/Units 19:18 19:18 19:18 WBC 4.5 (3.8-10.6) k/uL RBC 5.03 (4.30-5.90) m/uL Hgb 13.9 (13.0-17.5) gm/dL Hct 43.6 (39.0-53.0) % MCV 86.8 (80.0-100.0) fL MCH 27.6 (25.0-35.0) pg MCHC 31.8 (31.0-37.0) g/dL RDW 14.7 (11.5-15.5) % Plt Count 140 L (150-450) k/uL MPV 8.4 Neutrophils % 64 % Lymphocytes % 23 % Monocytes % 7 % Eosinophils % 2 % Basophils % 1 % Neutrophils # 2.9 (1.3-7.7) k/uL Lymphocytes # 1.0 (1.0-4.8) k/uL Monocytes # 0.3 (0-1.0) k/uL Eosinophils # 0.1 (0-0.7) k/uL Basophils # 0.0 (0-0.2) k/uL PT 13.5 H (10.0-12.5) sec INR 1.3 H (<1.2) APTT 32.1 H (22.0-30.0) sec Sodium 140 (137-145) mmol/L Potassium 4.5 (3.5-5.1) mmol/L Chloride 109 H (98-107) mmol/L Carbon Dioxide 26 (22-30) mmol/L Anion Gap 5 mmol/L BUN 44 H (9-20) mg/dL Creatinine 0.96 (0.66-1.25) mg/dL Est GFR (CKD-EPI)AfAm 82 (>60 ml/min/1.73 sqM) Est GFR (CKD-EPI)NonAf 71 (>60 ml/min/1.73 sqM) Glucose 150 H (74-99) mg/dL Plasma Lactic Acid Gorge (0.7-2.0) mmol/L Calcium 9.1 (8.4-10.2) mg/dL Phosphorus 3.9 (2.5-4.5) mg/dL Magnesium 2.2 (1.6-2.3) mg/dL Total Bilirubin 0.7 (0.2-1.3) mg/dL AST 21 (17-59) U/L ALT 15 (4-49) U/L Alkaline Phosphatase 68 (38-126) U/L Troponin I (0.000-0.034) ng/mL NT-Pro-B Natriuret Pep 113 pg/mL Total Protein 6.2 L (6.3-8.2) g/dL Albumin 3.4 L (3.5-5.0) g/dL TSH 2.200 (0.465-4.680) mIU/L 07/06/23 07/06/23 Range/Units 19:18 19:18 WBC (3.8-10.6) k/uL RBC (4.30-5.90) m/uL Hgb (13.0-17.5) gm/dL Hct (39.0-53.0) % MCV (80.0-100.0) fL MCH (25.0-35.0) pg MCHC (31.0-37.0) g/dL RDW (11.5-15.5) % Plt Count (150-450) k/uL MPV Neutrophils % % Lymphocytes % % Monocytes % % Eosinophils % % Basophils % % Neutrophils # (1.3-7.7) k/uL Lymphocytes # (1.0-4.8) k/uL Monocytes # (0-1.0) k/uL Eosinophils # (0-0.7) k/uL Basophils # (0-0.2) k/uL PT (10.0-12.5) sec INR (<1.2) APTT (22.0-30.0) sec Sodium (137-145) mmol/L Potassium (3.5-5.1) mmol/L Chloride (98-107) mmol/L Carbon Dioxide (22-30) mmol/L Anion Gap mmol/L BUN (9-20) mg/dL Creatinine (0.66-1.25) mg/dL Est GFR (CKD-EPI)AfAm (>60 ml/min/1.73 sqM) Est GFR (CKD-EPI)NonAf (>60 ml/min/1.73 sqM) Glucose (74-99) mg/dL Plasma Lactic Acid Gorge 1.1 (0.7-2.0) mmol/L Calcium (8.4-10.2) mg/dL Phosphorus (2.5-4.5) mg/dL Magnesium (1.6-2.3) mg/dL Total Bilirubin (0.2-1.3) mg/dL AST (17-59) U/L ALT (4-49) U/L Alkaline Phosphatase (38-126) U/L Troponin I <0.012 (0.000-0.034) ng/mL NT-Pro-B Natriuret Pep pg/mL Total Protein (6.3-8.2) g/dL Albumin (3.5-5.0) g/dL TSH (0.465-4.680) mIU/L - EKG Data -: EKG Interpreted by Me (EKG is paced 107 MN 147 QRS 138 QTc 417) - Radiology Data Radiology results: report reviewed (Chest x-ray is negative for acute disease), image reviewed Disposition Clinical Impression: Weakness, Dehydration, Hypotension Disposition: HOME SELF-CARE Condition: Good Instructions (If sedation given, give patient instructions): Hypotension (ED) Is patient prescribed a controlled substance at d/c from ED?: No Referrals: Nestor Harris MD [Primary Care Provider] - 1-2 days Time of Disposition: 20:25
[2023-07-06 18:47] VITALS: TEMP 98.1
[2023-07-06] MEDS: SODIUM CHLORIDE 0.9% 1,000 ML IV STA (19:29)
[2023-07-06 19:38] LABS: Basophils % (A) 1 %; Eosinophils # (A) 0.1 k/uL (0-0.7); Eosinophils % (A) 2 %; HCT 43.6 % (39.0-53.0); HGB 13.9 gm/dL (13.0-17.5); Lymphocytes % (A) 23 %; MCH 27.6 pg (25.0-35.0); MCHC 31.8 g/dL (31.0-37.0); MCV 86.8 fL (80.0-100.0); Mean Platelet Volume 8.4; Monocytes # (A) 0.3 k/uL (0-1.0); Monocytes % (A) 7 %; Neutrophils # (A) 2.9 k/uL (1.3-7.7); Neutrophils % (A) 64 %; Platelet Count 140 k/uL (150-450); RBC 5.03 m/uL (4.30-5.90); RDW 14.7 % (11.5-15.5); WBC 4.5 k/uL (3.8-10.6)
[2023-07-06 19:47] LABS: ALT 15 U/L (4-49); AST 21 U/L (17-59); African American GFR (CKD) 82 (>60 ml/min/1.73 sqM); Albumin 3.4 g/dL (3.5-5.0); Alkaline Phosphatase 68 U/L (38-126); Anion Gap 5 mmol/L; Blood Urea Nitrogen 44 mg/dL (9-20); Calcium 9.1 mg/dL (8.4-10.2); Carbon Dioxide 26 mmol/L (22-30); Chloride 109 mmol/L (98-107); Glucose 150 mg/dL (74-99); Magnesium 2.2 mg/dL (1.6-2.3); Non-African American GFR(CKD) 71 (>60 ml/min/1.73 sqM); Phosphorus 3.9 mg/dL (2.5-4.5); Potassium 4.5 mmol/L (3.5-5.1); Sodium 140 mmol/L (137-145); Total Bilirubin 0.7 mg/dL (0.2-1.3); Total Protein 6.2 g/dL (6.3-8.2)
[2023-07-06 19:56] LABS: NT-Pro-B-Type Natriuretic Pept 113 pg/mL
[2023-07-06 20:08] LABS: INR 1.3 (<1.2); Partial Thromboplastin Time 32.1 sec (22.0-30.0); Prothrombin Time 13.5 sec (10.0-12.5)
[2023-07-06] MEDS: SODIUM CHLORIDE 0.9% 500 ML 500 ML IV STA (20:10)
--- NOTE | 2023-07-06 20:24 | XR ---
EXAMINATION TYPE: XR chest 2V DATE OF EXAM: 07/06/2023 7:42 PM CLINICAL INDICATION:Male, 87 years old with history of Weakness; COMPARISON: Chest radiographs from 09/04/2022. TECHNIQUE: XR chest 2V Frontal and lateral views of the chest. FINDINGS: Lungs/Pleura: There is flattening of the diaphragm with increased lucency of the lungs. No evidence o f pneumothorax or focal consolidation. Suspected right pleural effusion. Pulmonary vascularity: Unremarkable. Heart/mediastinum: Cardiomediastinal silhouette is unremarkable. Atherosclerotic calcifications are seen in the aorta. Three lead cardiac conduction device overlying the left hemithorax with lead tips projecting over the right ventricle, right atrium and coronary sinus. Musculoskeletal: No acute osseous pathology. Other findings: None IMPRESSION: 1. No acute cardiopulmonary disease process. 2. COPD changes. With right pleural effusion.
[2023-07-06 20:34] VITALS: BP 146/87; PULSE 100; RESP 18
== END 2023-07-06 20:34 | disposition home or self-care (01) ==
LOC: EC 18:05
DX: E86.0 Dehydration (principal); I95.9 Hypotension, unspecified; I11.0 Hypertensive heart disease with heart failure; I50.9 Heart failure, unspecified; I48.0 Paroxysmal atrial fibrillation; I48.92 Unspecified atrial flutter; Z79.01 Long term (current) use of anticoagulants; Z79.899 Other long term (current) drug therapy; Z88.0 Allergy status to penicillin; Z88.1 Allergy status to other antibiotic agents; Z95.0 Presence of cardiac pacemaker
CPT/HCPCS: 36415; 71046; 80053; 83605; 83735; 83880; 84100; 84443; 84484; 85025; 85610; 85730; 93005; 96360; 99285

== ENCOUNTER 2023-09-18 19:08 | Inpatient (IN) | payer MEDICARE ==
[2023-09-18 19:33] LABS: Glucose,Whole Blood 123 mg/dL (70-110)
[2023-09-18] MEDS: SODIUM CHLORIDE 0.9% 500 ML 500 ML IV ONE ×2 (19:42→20:31)
[2023-09-18 19:46] LABS: HCT 43.8 % (39.0-53.0); HGB 13.5 gm/dL (13.0-17.5); Hypochromasia Slight; MCH 27.2 pg (25.0-35.0); MCHC 30.7 g/dL (31.0-37.0); MCV 88.6 fL (80.0-100.0); Mean Platelet Volume 7.6; Platelet Count 112 k/uL (150-450); RBC 4.95 m/uL (4.30-5.90); RDW 14.8 % (11.5-15.5); WBC 6.4 k/uL (3.8-10.6)
[2023-09-18 19:57] LABS: ALT 21 U/L (4-49); AST 42 U/L (17-59); African American GFR (CKD) 58 (>60 ml/min/1.73 sqM); Albumin 3.3 g/dL (3.5-5.0); Alkaline Phosphatase 81 U/L (38-126); Amylase 87 U/L (30-110); Anion Gap 6 mmol/L; Blood Urea Nitrogen 38 mg/dL (9-20); Calcium 8.8 mg/dL (8.4-10.2); Carbon Dioxide 23 mmol/L (22-30); Chloride 108 mmol/L (98-107); Glucose 122 mg/dL (74-99); Lipase 74 U/L (23-300); Non-African American GFR(CKD) 50 (>60 ml/min/1.73 sqM); Potassium 4.2 mmol/L (3.5-5.1); Sodium 137 mmol/L (137-145); Total Bilirubin 1.2 mg/dL (0.2-1.3); Total Protein 6.1 g/dL (6.3-8.2)
--- NOTE | 2023-09-18 20:03 | ED ---
General Adult HPI - General Chief complaint: Abdominal Pain Stated complaint: Nausea, Weakness Time Seen by Provider: 09/18/23 19:23 Source: patient, RN notes reviewed, old records reviewed Mode of arrival: EMS - History of Present Illness Initial comments: 88-year-old male presenting with left flank pain and weakness. Patient states earlier today he had left flank pain which was relieved with Tylenol. He states he does have history of kidney stones and states this was a similar pain. He also reports chills which began today. He denies chest pain. Denies cough. Denies current abdominal pain. - Related Data Home Medications Medication Instructions Recorded Confirmed Multivitamin [Men's Multi-Vitamin] 1 tab PO W/SUPPER 10/16/13 09/18/23 Pravastatin Sodium [Pravachol] 20 mg PO HS 10/16/13 09/18/23 Rivaroxaban [Xarelto] 20 mg PO W/SUPPER 10/16/13 09/18/23 Fludrocortisone [Florinef] 0.1 mg PO DAILY 02/25/18 09/18/23 Cholecalciferol [Vitamin D3 (25 25 mcg PO DAILY 02/22/23 09/18/23 Mcg = 1000 Iu)] Metoprolol Succinate [Metoprolol 25 mg PO W/SUPPER 02/22/23 09/18/23 Succinate ER] Mirtazapine 15 mg PO HS 02/22/23 09/18/23 sitaGLIPtin [Januvia] 100 mg PO DAILY 02/22/23 09/18/23 L.acidoph,Paracasei, B.lactis 1 cap PO W/SUPPER 03/18/23 09/18/23 [Probiotic] Dapagliflozin Propanediol [Farxiga] 10 mg PO DAILY 09/18/23 09/18/23 Ferrous Sulfate [Feosol] 325 mg PO DAILY 09/18/23 09/18/23 glipiZIDE XL [Glucotrol Xl] 5 mg PO DAILY 09/18/23 09/18/23 Allergies Allergy/AdvReac Type Severity Reaction Status Date / Time amoxicillin trihydrate AdvReac WEAKNESS, Verified 09/18/23 20:48 [From Augmentin] TIRED - AFTER BEING ON FOR SOME TIME ciprofloxacin [From Cipro] AdvReac Unknown Verified 09/18/23 20:48 potassium clavulanate AdvReac WEAKNESS, Verified 09/18/23 20:48 [From Augmentin] TIRED - AFTER BEING ON FOR SOME TIME Review of Systems ROS Statement: Those systems with pertinent positive or pertinent negative responses have been documented in the HPI. ROS Other: All systems not noted in ROS Statement are negative. Past Medical History Past Medical History: Atrial Fibrillation, Atrial Flutter, Hypertension Additional Past Medical History / Comment(s): SEE DR SNYDER'S H&P. 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 History of Any Multi-Drug Resistant Organisms: C-DIFF Date of last positivie culture/infection: 2014 MDRO Source:: STOOL Past Surgical History: Cardiac Ablation, Heart Catheterization, Pacemaker, Prostate Surgery Additional Past Surgical History / Comment(s): GULSHAN, cardioversion, cardiac ablation for aflutter, TURP, skin cancer removals, colonoscopy, bilateral cataract removals/lens implants. Past Anesthesia/Blood Transfusion Reactions: No Reported Reaction Additional Past Anesthesia/Blood Transfusion Reaction / Comment(s): . Type of Cardiac Device: Permanent Pacemaker Device Placement Date:: 02-01-15 Past Psychological History: No Psychological Hx Reported Smoking Status: Never smoker Past Alcohol Use History: None Reported Past Drug Use History: None Reported - Past Family History Father Family Medical History: Coronary Artery Disease (CAD) Additional Family Medical History / Comment(s): Father at the age of 76yrs. Mother Additional Family Medical History / Comment(s): ASHD, rheumatic heart disease. Mother at the age of 85 yrs. General Exam General appearance: alert, in no apparent distress Head exam: Present: atraumatic, normocephalic Eye exam: Present: normal appearance, PERRL ENT exam: Present: mucous membranes dry Neck exam: Present: normal inspection. Absent: tenderness, meningismus Respiratory exam: Present: normal lung sounds bilaterally. Absent: respiratory distress, wheezes Cardiovascular Exam: Present: regular rate, irregular rhythm GI/Abdominal exam: Present: soft. Absent: distended, tenderness, guarding, rebound Extremities exam: Present: normal inspection, normal capillary refill Neurological exam: Present: alert, oriented X3, CN II-XII intact. Absent: motor sensory deficit Psychiatric exam: Present: normal affect, normal mood Skin exam: Present: warm, dry, intact Course Vital Signs 09/18/23 09/18/23 09/18/23 19:09 19:28 19:33 Temperature 99.1 F 100.7 F H Pulse Rate 92 97 Respiratory 18 18 Rate Blood Pressure 98/60 86/56 O2 Sat by Pulse 96 96 Oximetry 09/18/23 21:30 Temperature Pulse Rate 102 H Respiratory 18 Rate Blood Pressure 108/64 O2 Sat by Pulse 95 Oximetry Medical Decision Making - Medical Decision Making Was pt. sent in by a medical professional or institution (, PA, OVER SHORT AND DAMAGE CLERK, urgent care, hospital, or halfway...) When possible be specific @ -No Did you speak to anyone other than the patient for history (EMS, parent, family, police, friend...)? What history was obtained from this source @ -No Did you review nursing and triage notes (agree or disagree)? Why? @ -I reviewed and agree with nursing and triage notes Were old charts reviewed (outside hosp., previous admission, EMS record, old EKG, old radiological studies, urgent care reports/EKG's, halfway records)? Report findings @ -No old charts were reviewed Differential Abdominal Pain Men: Appendicitis, cholecystitis, diverticulosis, ischemic bowel, pancreatitis, hepatitis, UTI, gastroenteritis, AAA, incarcerated hernia, bowel obstruction, constipation, inflammatory bowel, hepatitis, peptic ulcer disease, splenic infarction, perforated viscus, testicular torsion, this is not meant to be an all-inclusive list EKG interpreted by me (3pts min.). @Paced rhythm rate of 93, QRS duration 120, QTc [address] segment elevation. X-rays interpreted by me (1pt min.). @ -Chest x-ray negative for focal pneumonia, small right-sided pleural effusion CT interpreted by me (1pt min.). @ -CT abdomen pelvis shows a distal obstructing stone measuring 7 mm, with associated hydronephrosis and hydroureter. U/S interpreted by me (1pt. min.). @ -None done What testing was considered but not performed or refused? (CT, X-rays, U/S, labs)? Why? @ -None What meds were considered but not given or refused? Why? @ -None Did you discuss the management of the patient with other professionals (professionals i.e. DrYarelis, PA, OVER SHORT AND DAMAGE CLERK, lab, RT, psych nurse, medical social worker, perinatology physician, teacher, policy officer, family service caseworker)? Give summary @ -Discussed with Dr. Sebastian barry for urology who will likely place stent tomorrow morning. Patient admitted to internal medicine, case discussed with Dr. Reed Was smoking cessation discussed for >3mins.? @ -No Was critical care preformed (if so, how long)? @ -yes 35 Were there social determinants of health that impacted care today? How? (Homelessness, low income, unemployed, alcoholism, drug addiction, transportation, low edu. Level, literacy, decrease access to med. care, retirement, rehab)? @ -No Was there de-escalation of care discussed even if they declined (Discuss DNR or withdrawal of care, Hospice)? DNR status @ -No What co-morbidities impacted this encounter? (DM, HTN, Smoking, COPD, CAD, Cancer, CVA, ARF, Chemo, Hep., AIDS, mental health diagnosis, sleep apnea, morbid obesity)? @ -None Was patient admitted / discharged? Hospital course, mention meds given and route, prescriptions, significant lab abnormalities, going to OR and other pertinent info. @ -88-year-old male with flank pain, fever. Patient is febrile upon arrival. He has no further pain. Workup is initiated and reveals a obstructing left kidney stone with hydronephrosis. Urinalysis shows 47 white cells with many bacteria. Urine culture and blood cultures are pending. Patient is given IV fluid, Tylenol, and started on IV antibiotics. He is admitted to internal medicine with urology on consult. Undiagnosed new problem with uncertain prognosis? @ -No Drug Therapy requiring intensive monitoring for toxicity (Heparin, Nitro, Insulin, Cardizem)? @ -No Were any procedures done? @ -No Diagnosis/symptom? @ -Obstructing renal stone, UTI Acute, or Chronic, or Acute on Chronic? @Acute] Uncomplicated (without systemic symptoms) or Complicated (systemic symptoms)? @ -Default Side effects of treatment? @ -No Exacerbation, Progression, or Severe Exacerbation? @ -No Poses a threat to life or bodily function? How? (Chest pain, USA, PA, pneumonia, PE, COPD, DKA, ARF, appy, cholecystitis, CVA, Diverticulitis, Homicidal, Suicidal, threat to staff... and all critical care pts) @ -Yes, sepsis - Lab Data Result diagrams: 09/18/23 19:34 09/18/23 19:34 Lab Results 09/18/23 09/18/23 09/18/23 Range/Units 19:31 19:34 19:34 WBC 6.4 (3.8-10.6) k/uL RBC 4.95 (4.30-5.90) m/uL Hgb 13.5 (13.0-17.5) gm/dL Hct 43.8 (39.0-53.0) % MCV 88.6 (80.0-100.0) fL MCH 27.2 (25.0-35.0) pg MCHC 30.7 L (31.0-37.0) g/dL RDW 14.8 (11.5-15.5) % Plt Count 112 L (150-450) k/uL MPV 7.6 Neutrophils % (Manual) 92 % Band Neuts % (Manual) 4 % Lymphocytes % (Manual) 3 % Monocytes % (Manual) 1 % Neutrophils # (Manual) 6.10 (1.3-7.7) k/uL Lymphocytes # (Manual) 0.19 L (1.0-4.8) k/uL Monocytes # (Manual) 0.06 (0-1.0) k/uL Nucleated RBCs 0 (0-0) /100 WBC Manual Slide Review Performed Hypochromasia Slight Sodium 137 (137-145) mmol/L Potassium 4.2 (3.5-5.1) mmol/L Chloride 108 H (98-107) mmol/L Carbon Dioxide 23 (22-30) mmol/L Anion Gap 6 mmol/L BUN 38 H (9-20) mg/dL Creatinine 1.27 H (0.66-1.25) mg/dL Est GFR (CKD-EPI)AfAm 58 (>60 ml/min/1.73 sqM) Est GFR (CKD-EPI)NonAf 50 (>60 ml/min/1.73 sqM) Glucose 122 H (74-99) mg/dL POC Glucose (mg/dL) 123 H (70-110) mg/dL POC Glu [employer] ID Carolina Stuart Plasma Lactic Acid [place]orge (0.7-2.0) mmol/L Calcium 8.8 (8.4-10.2) mg/dL Total Bilirubin 1.2 (0.2-1.3) mg/dL AST 42 (17-59) U/L ALT 21 (4-49) U/L Alkaline Phosphatase 81 (38-126) U/L Total Protein 6.1 L (6.3-8.2) g/dL Albumin 3.3 L (3.5-5.0) g/dL Amylase 87 (30-110) U/L Lipase 74 (23-300) U/L Urine Color Urine Appearance (Clear) Urine pH (5.0-8.0) Ur Specific [place] (1.001-1.035) Urine Protein (Negative) Urine Glucose (UA) (Negative) Urine Ketones (Negative) Urine Blood (Negative) Urine Nitrite (Negative) Urine Bilirubin (Negative) Urine Urobilinogen (<2.0) mg/dL Ur Leukocyte Esterase (Negative) Urine RBC (0-5) /hpf Urine WBC (0-5) /hpf Urine WBC Clumps (None) /hpf Ur Squamous Epith Cells (0-4) /hpf Urine Bacteria (None) /hpf Urine Mucus (None) /hpf Influenza Type A (PCR) (Not Detectd) Influenza Type B (PCR) (Not Detectd) RSV (PCR) (Not Detectd) SARS-CoV-2 (PCR) (Not Detectd) 09/18/23 09/18/23 09/18/23 Range/Units 19:34 19:34 21:17 WBC (3.8-10.6) k/uL RBC (4.30-5.90) m/uL Hgb (13.0-17.5) gm/dL Hct (39.0-53.0) % MCV (80.0-100.0) fL MCH (25.0-35.0) pg MCHC (31.0-37.0) g/dL RDW (11.5-15.5) % Plt Count (150-450) k/uL MPV Neutrophils % (Manual) % Band Neuts % (Manual) % Lymphocytes % (Manual) % Monocytes % (Manual) % Neutrophils # (Manual) (1.3-7.7) k/uL Lymphocytes # (Manual) (1.0-4.8) k/uL Monocytes # (Manual) (0-1.0) k/uL Nucleated RBCs (0-0) /100 WBC Manual Slide Review Hypochromasia Sodium (137-145) mmol/L Potassium (3.5-5.1) mmol/L Chloride (98-107) mmol/L Carbon Dioxide (22-30) mmol/L Anion Gap mmol/L BUN (9-20) mg/dL Creatinine (0.66-1.25) mg/dL Est GFR (CKD-EPI)AfAm (>60 ml/min/1.73 sqM) Est GFR (CKD-EPI)NonAf (>60 ml/min/1.73 sqM) Glucose (74-99) mg/dL POC Glucose (mg/dL) (70-110) mg/dL POC Glu [employer] Of [employer] ID Plasma Lactic Acid [place] 1.7 (0.7-2.0) mmol/L Calcium (8.4-10.2) mg/dL Total Bilirubin (0.2-1.3) mg/dL AST (17-59) U/L ALT (4-49) U/L Alkaline Phosphatase (38-126) U/L Total Protein (6.3-8.2) g/dL Albumin (3.5-5.0) g/dL Amylase (30-110) U/L Lipase (23-300) U/L Urine Color Colorless Urine Appearance Clear (Clear) Urine pH 5.0 (5.0-8.0) Ur Specific [place] 1.020 (1.001-1.035) Urine Protein Negative (Negative) Urine Glucose (UA) 4+ H (Negative) Urine Ketones Negative (Negative) Urine Blood Trace H (Negative) Urine Nitrite Positive (Negative) Urine Bilirubin Negative (Negative) Urine Urobilinogen <2.0 (<2.0) mg/dL Ur Leukocyte Esterase Large H (Negative) Urine RBC 12 H (0-5) /hpf Urine WBC 47 H (0-5) /hpf Urine WBC Clumps Occasional H (None) /hpf Ur Squamous Epith Cells <1 (0-4) /hpf Urine Bacteria Many H (None) /hpf Urine Mucus Rare H (None) /hpf Influenza Type A (PCR) Not Detected (Not Detectd) Influenza Type B (PCR) Not Detected (Not Detectd) RSV (PCR) Not Detected (Not Detectd) SARS-CoV-2 (PCR) Not Detected (Not Detectd) Critical Care Time Critical Care Time: Yes Total Critical Care Time: 35 Disposition Clinical Impression: Urinary tract infection, Hydronephrosis with renal and ureteral calculous obstruction, Calculus of kidney Disposition: ADMITTED IP TO THIS [facility] Condition: Stable Is patient prescribed a controlled substance at d/c from ED?: No Referrals: Nestor Harris MD [Primary Care Provider] - 1-2 days Time of Disposition: 21:53
--- NOTE | 2023-09-18 20:32 | XR ---
EXAMINATION TYPE: XR chest 2V DATE OF EXAM: 09/18/2023 7:58 PM CLINICAL INDICATION:Male, 88 years old with history of fever; [facility] COMPARISON: Chest radiographs from 07/06/2023. TECHNIQUE: XR chest 2V Frontal and lateral views of the chest. FINDINGS: Lungs/Pleura: Prominent interstitial lung markings are seen scattered throughout the lungs with cailin ening of the diaphragm and increased lucency of the lung apices. No evidence of focal consolidation, pneumothorax . There is Blunting of the right costophrenic angle. Pulmonary vascularity: Unremarkable. Heart/mediastinum: Cardiomediastinal silhouette is unremarkable. Three lead cardiac conduction device overlying the left hemithorax with lead tips projecting over the right ventricle, right atrium and c oronary sinus. Musculoskeletal: No acute osseous pathology. IMPRESSION: 1. COPD changes. 2. Small right pleural effusion.
[2023-09-18 20:42] LABS: Band Neutrophils % 4 %; Lymphocytes # (M) 0.19 k/uL (1.0-4.8); Monocytes # (M) 0.06 k/uL (0-1.0); Neutrophils % (M) 92 %; Nucleated Red Blood Cells 0 /100 WBC (0-0); Total Cells Counted 100
[2023-09-18 21:29] LABS: Appearance,Urine Clear (Clear); Bacteria,Urine Many /hpf; Bilirubin,Urine Negative (Negative); Blood,Urine Trace (Negative); Color,Urine Colorless; Glucose,Urine (UA) 4+ (Negative); Ketones,Urine Negative (Negative); Leukocyte Esterase,Urine Large (Negative); Mucus,Urine Rare /hpf; Nitrite,Urine Positive (Negative); Protein,Urine Negative (Negative); RBC,Urine 12 /hpf (0-5); Squamous Epithelial Cell,Urine <1 /hpf (0-4); Urobilinogen,Urine <2.0 mg/dL (<2.0); WBC,Urine 47 /hpf (0-5)
--- NOTE | 2023-09-18 21:40 | CT ---
EXAMINATION TYPE: CT abdomen pelvis wo con CT DLP: 467.6 mGycm, Automated exposure control for dose reduction was used. DATE OF EXAM: 09/18/2023 8:08 PM COMPARISON: None. CLINICAL INDICATION:Male, 88 years old with history of Left flank pain, fever; abdominal pain, weakne ss, nausea, and fever TECHNIQUE: Axial CT of the abdomen and pelvis. Sagittal and coronal reformats were created on a [employer] workstation. Contrast used: mL of , (none if empty) Oral contrast used: without Oral Contrast (none if empty) FINDINGS: LOWER CHEST: Dependent opacities in the lungs consistent with subsegmental atelectasis. There is a co nsolidative subpleural ovoid opacity in the right posterior lung, with the appearance of round atelec tasis. Small right pleural effusion. No significant left effusion. Heart appears mildly enlarged with distal and the pacer leads seen in the RA, RV, coronary sinus. ABDOMEN LIVER: Unremarkable GALLBLADDER AND BILE DUCTS: Mildly distended without calcified stone seen. PANCREAS: Fatty infiltrated without acute findings SPLEEN: Unremarkable. ADRENAL GLANDS: Mildly thickened, may be seen with hyperplasia.. KIDNEYS AND URETERS: Punctate calculus in the mid right kidney. No hydronephrosis or mass. PELVIS BLADDER: Unremarkable left kidney has approximately 3.8 cm cyst in its midportion. There is moderate left-sided hydroureteronephrosis secondary to a 7.3 cm dense calcification of the UVJ. REPRODUCTIVE: Mildly prominent prostate with several coarse parenchymal calcifications. ABDOMEN & PELVIS STOMACH AND BOWEL: Stomach and small bowel are nondistended, no evidence of obstruction. The append ix is not seen with certainty but there is no inflammatory process seen in the pericecal region. Mode rate to large amount of stool seen throughout the colon down to the rectal level PERITONEUM/RETROPERITONEUM: No evidence of pneumoperitoneum or free fluid. VASCULATURE: Moderate to severe atherosclerotic calcifications are present throughout the abdominal a chaz and its branches. No evidence of aortic aneurysm. LYMPH NODES: No enlarged nodes by CT size criteria. SOFT TISSUE/ABDOMINAL WALL: Unremarkable MUSCULOSKELETAL: No acute osseous abnormalities. Moderate degenerative changes. IMPRESSION: * Moderate left-sided hydroureteronephrosis, secondary to a 7 mm calculus at the left ureterovesical junction. * Prostatomegaly with coarse parenchymal calcification.
[2023-09-18] MEDS: SODIUM CHLORIDE 0.9% 1,000 ML IV SCH (21:43)
[2023-09-18] MEDS: ACETAMINOPHEN IV (For NPO) 1,000 MG in EMPTY BAG 1 BAG IVPB STA (21:43)
[2023-09-18] MEDS ORDERED: NALOXONE 0.4 MG/ML 1 ML VIAL IV PRN (21:49)
[2023-09-18] MEDS ORDERED: ACETAMINOPHEN TAB 325 MG TAB PO PRN (21:49)
--- NOTE | 2023-09-19 01:21 | P.HPIM ---
History of Present Illness H&P Date: 09/18/23 Patient is a 88-year-old male with a PMH of type II DM, A-fib on Xarelto, status post biventricular pacemaker placement, hypertension, BPH status post TURP, and nephrolithiasis who presents to the emergency room with complaints of left flank pain. Patient reports his pain started earlier this morning around 9 AM and persisted, was nonradiating, in the left flank, 8 out of 10 at maximal intensity, with no alleviating or exacerbating features, and sharp in nature. Reports that he does have a history of kidney stones and that this is somewhat similar to his prior episodes which prompted him to come to the emergency room. Does note that the pain has improved significantly after arrival at the emergency room, currently rated 1 out of 10. Also reports feeling feverish and fatigued throughout the day today. Denied experiencing chest discomfort, shortness of breath, nausea, vomiting, diarrhea. CT abdomen and pelvis in the emergency room revealed moderate left-sided hydroureteronephrosis secondary to a 7 mm calculus at the UV junction as well as prostatomegaly. Chest x-ray revealed findings of chronic COPD with EKG showing V paced rhythm at 93 bpm. Laboratory evaluation was remarkable for platelet count of 112, BUN 38, creatinine 1.27, UA grossly abnormal, and glucose 122. The patient had a Tmax of 100.7 F in the emergency room with pulse of 102. ED documentation reviewed and case discussed with ED provider. Review of systems: Pertinent positives and negatives as discussed in HPI, a complete review of systems was performed and all other systems are negative. Physical examination: Vital signs reviewed General: non toxic, no distress, appears at stated age, normal weight Derm: no unusual rashes/lesions, warm Head: atraumatic, normocephalic, symmetric Eyes: EOMI, no lid lag, anicteric sclera, pupils equal round reactive to light ENT: Nose and ears atraumatic Neck: No cervical lymphadenopathy, trachea midline, supple Mouth: no lip lesion, mucus membranes moist Cardiovascular: S1S2 reg, no murmur, positive dorsalis pedis pulse bilateral, no edema Lungs: CTA bilateral, no rhonchi, no rales, no accessory muscle use Abdominal: soft, nontender to palpation, no guarding Ext: muscle strength 5 out of 5 in all 4 extremities grossly, no gross muscle atrophy, no contractures, Neuro: CN II-XI grossly intact, no gross focal neuro deficits Psych: Alert, oriented, appropriate affect Assessment: Sepsis secondary to obstructive nephrolithiasis with hydroureteronephrosis KOTA, likely due to above Thrombocytopenia, similar to baseline Chronic conditions: A-fib, status post biventricular pacemaker, hypertension, BPH Imaging: CT abdomen and pelvis in the emergency room revealed moderate left-sided hydroureteronephrosis secondary to a 7 mm calculus at the UV junction as well as prostatomegaly. Chest x-ray revealed findings of chronic COPD with EKG showing V paced rhythm at 93 bpm. Data Review: Laboratory evaluation was remarkable for platelet count of 112, BUN 38, creatinine 1.27, UA grossly abnormal, and glucose 122. The patient had a Tmax of 100.7 F in the emergency room with pulse of 102. Plan: Continue with ceftriaxone 2 g every 24 hours Urology consulted Continue with normal saline 130 cc/h Follow-up urine and blood cultures Monitor CBC and BMP Resume home medications once reconciled DVT prophylaxis: Xarelto The patient is admitted with an anticipated greater than than 2 midnight stay for evaluation of nephrolithiasis CODE STATUS: No Code Discussed with: Patient Anticipated discharge place: Home Past Medical History Past Medical History: Atrial Fibrillation, Atrial Flutter, Hypertension Additional Past Medical History / Comment(s): SEE DR SNYDER'S H&P. 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 History of Any Multi-Drug Resistant Organisms: C-DIFF Date of last positivie culture/infection: 2014 MDRO Source:: STOOL Past Surgical History: Cardiac Ablation, Heart Catheterization, Pacemaker, Prostate Surgery Additional Past Surgical History / Comment(s): GULSHAN, cardioversion, cardiac ablation for aflutter, TURP, skin cancer removals, colonoscopy, bilateral cataract removals/lens implants. Past Anesthesia/Blood Transfusion Reactions: No Reported Reaction Additional Past Anesthesia/Blood Transfusion Reaction / Comment(s): . Type of Cardiac Device: Permanent Pacemaker Device Placement Date:: 02-01-15 Past Psychological History: No Psychological Hx Reported Smoking Status: Never smoker Past Alcohol Use History: None Reported Past Drug Use History: None Reported - Past Family History Father Family Medical History: Coronary Artery Disease (CAD) Additional Family Medical History / Comment(s): Father at the age of 76yrs. Mother Additional Family Medical History / Comment(s): ASHD, rheumatic heart disease. Mother at the age of 85 yrs. Medications and Allergies Home Medications Medication Instructions Recorded Confirmed Type Multivitamin [Men's Multi-Vitamin] 1 tab PO W/SUPPER 10/16/13 09/18/23 History Pravastatin Sodium [Pravachol] 20 mg PO HS 10/16/13 09/18/23 History Rivaroxaban [Xarelto] 20 mg PO W/SUPPER 10/16/13 09/18/23 History Fludrocortisone [Florinef] 0.1 mg PO DAILY 02/25/18 09/18/23 History Cholecalciferol [Vitamin D3 (25 25 mcg PO DAILY 02/22/23 09/18/23 History Mcg = 1000 Iu)] Metoprolol Succinate [Metoprolol 25 mg PO W/SUPPER 02/22/23 09/18/23 History Succinate ER] Mirtazapine 15 mg PO HS 02/22/23 09/18/23 History sitaGLIPtin [Januvia] 100 mg PO DAILY 02/22/23 09/18/23 History L.acidoph,Paracasei, B.lactis 1 cap PO W/SUPPER 03/18/23 09/18/23 History [Probiotic] Dapagliflozin Propanediol [Farxiga] 10 mg PO DAILY 09/18/23 09/18/23 History Ferrous Sulfate [Feosol] 325 mg PO DAILY 09/18/23 09/18/23 History glipiZIDE XL [Glucotrol Xl] 5 mg PO DAILY 09/18/23 09/18/23 History Allergies Allergy/AdvReac Type Severity Reaction Status Date / Time amoxicillin trihydrate AdvReac WEAKNESS, Verified 09/18/23 20:48 [From Augmentin] TIRED - AFTER BEING ON FOR SOME TIME ciprofloxacin [From Cipro] AdvReac Unknown Verified 09/18/23 20:48 potassium clavulanate AdvReac WEAKNESS, Verified 09/18/23 20:48 [From Augmentin] TIRED - AFTER BEING ON FOR SOME TIME Physical Exam Vitals: Vital Signs Temp Pulse Resp BP Pulse Ox 09/18/23 23:03 98.8 F 09/18/23 21:30 102 H 18 108/64 95 09/18/23 19:33 100.7 F H 09/18/23 19:28 97 18 86/56 96 09/18/23 19:09 99.1 F 92 18 98/60 96 Intake and Output 09/18/23 09/18/23 09/19/23 14:59 22:59 06:59 Output Total 350 Balance -350 Output: Urine 350 Straight 350 Other: Weight 78.925 kg Results CBC & Chem 7: 09/18/23 19:34 09/18/23 19:34 Labs: Abnormal Lab Results - Last 24 Hours (Table) 09/18/23 09/18/23 09/18/23 Range/Units 19:31 19:34 19:34 MCHC 30.7 L (31.0-37.0) g/dL Plt Count 112 L (150-450) k/uL Lymphocytes # (Manual) 0.19 L (1.0-4.8) k/uL Chloride 108 H (98-107) mmol/L BUN 38 H (9-20) mg/dL Creatinine 1.27 H (0.66-1.25) mg/dL Glucose 122 H (74-99) mg/dL POC Glucose (mg/dL) 123 H (70-110) mg/dL Total Protein 6.1 L (6.3-8.2) g/dL Albumin 3.3 L (3.5-5.0) g/dL Urine Glucose (UA) (Negative) Urine Blood (Negative) Ur Leukocyte Esterase (Negative) Urine RBC (0-5) /hpf Urine WBC (0-5) /hpf Urine WBC Clumps (None) /hpf Urine Bacteria (None) /hpf Urine Mucus (None) /hpf 09/18/23 Range/Units 21:17 MCHC (31.0-37.0) g/dL Plt Count (150-450) k/uL Lymphocytes # (Manual) (1.0-4.8) k/uL Chloride (98-107) mmol/L BUN (9-20) mg/dL Creatinine (0.66-1.25) mg/dL Glucose (74-99) mg/dL POC Glucose (mg/dL) (70-110) mg/dL Total Protein (6.3-8.2) g/dL Albumin (3.5-5.0) g/dL Urine Glucose (UA) 4+ H (Negative) Urine Blood Trace H (Negative) Ur Leukocyte Esterase Large H (Negative) Urine RBC 12 H (0-5) /hpf Urine WBC 47 H (0-5) /hpf Urine WBC Clumps Occasional H (None) /hpf Urine Bacteria Many H (None) /hpf Urine Mucus Rare H (None) /hpf
[2023-09-19] MEDS: FLUDROCORTISONE 0.1 MG TAB PO SCH (08:17)
[2023-09-19] MEDS: HYDROmorphone 0.5 MG/0.5 ML SYRINGE IVP PRN (12:51)
--- NOTE | 2023-09-19 15:34 | P.PN ---
Subjective Progress Note Date: 09/19/23 Pt c/o ongoing abd and flank pain. Pending NUS placement by urology today. Gen: In NAD, non-toxic HEENT: normocephalic, atraumatic, hearing acuity is intant, mucous membranes moist CVS: perfusing all extremities well, no pitting edema, Respiratory: symmetric chest expansion, no accessory muscle use, GI: soft, NTTP, ND, : no suprapubic tenderness, no CVA tenderness MSK/Derm: no rashes, cyanosis Neuro: CN II-XII intact, no motor weakness, Psych: cooperative, euthymic mood, judgment and insight is intact Hospital course: Patient is a 88-year-old male with a PMH of type II DM, A-fib on Xarelto, status post biventricular pacemaker placement, hypertension, BPH status post TURP, and nephrolithiasis who presented to the emergency room with complaints of left flank pain. CT abdomen and pelvis in the emergency room revealed moderate left- sided hydroureteronephrosis secondary to a 7 mm calculus at the UV junction as well as prostatomegaly. Chest x-ray revealed findings of chronic COPD with EKG showing V paced rhythm at 93 bpm. Laboratory evaluation was remarkable for platelet count of 112, BUN 38, creatinine 1.27, UA grossly abnormal, and glucose 122. The patient had a Tmax of 100.7 F in the emergency room with pulse of 102. Assessment/plan: Sepsis secondary to obstructive nephrolithiasis with hydroureteronephrosis KOTA, likely due to above Thrombocytopenia, similar to baseline -Continue with ceftriaxone 2 g every 24 hours -Urology consulted, pending NUS placement as add on 09/18 -Continue with normal saline 130 cc/h -Follow-up urine and blood cultures -Monitor CBC and BMP Chronic conditions: A-fib, status post biventricular pacemaker, hypertension, BPH -Resume home medications once reconciled DVT prophylaxis: Xarelto The patient is admitted with an anticipated greater than than 2 midnight stay for evaluation of nephrolithiasis CODE STATUS: No Code Discussed with: Patient Anticipated discharge place: Home Objective - Vital Signs Vital signs: Vital Signs Temp 98.4 F 09/19/23 08:00 Pulse 66 09/19/23 12:00 Resp 16 09/19/23 12:00 BP 109/59 09/19/23 12:00 Pulse Ox 98 09/19/23 12:00 FiO2 Intake & Output 09/18/23 09/19/23 09/19/23 18:59 06:59 18:59 Output Total 350 Balance -350 Weight 78.925 kg Output: Urine 350 Straight 350 Other: Voiding Method Toilet Toilet # Voids 1 1 # Bowel Movements 1 - Labs CBC & Chem 7: 09/18/23 19:34 09/18/23 19:34 Labs: Abnormal Lab Results - Last 24 Hours (Table) 09/18/23 09/18/23 09/18/23 Range/Units 19:31 19:34 19:34 MCHC 30.7 L (31.0-37.0) g/dL Plt Count 112 L (150-450) k/uL Lymphocytes # (Manual) 0.19 L (1.0-4.8) k/uL Chloride 108 H (98-107) mmol/L BUN 38 H (9-20) mg/dL Creatinine 1.27 H (0.66-1.25) mg/dL Glucose 122 H (74-99) mg/dL POC Glucose (mg/dL) 123 H (70-110) mg/dL Total Protein 6.1 L (6.3-8.2) g/dL Albumin 3.3 L (3.5-5.0) g/dL Urine Glucose (UA) (Negative) Urine Blood (Negative) Ur Leukocyte Esterase (Negative) Urine RBC (0-5) /hpf Urine WBC (0-5) /hpf Urine WBC Clumps (None) /hpf Urine Bacteria (None) /hpf Urine Mucus (None) /hpf 09/18/23 Range/Units 21:17 MCHC (31.0-37.0) g/dL Plt Count (150-450) k/uL Lymphocytes # (Manual) (1.0-4.8) k/uL Chloride (98-107) mmol/L BUN (9-20) mg/dL Creatinine (0.66-1.25) mg/dL Glucose (74-99) mg/dL POC Glucose (mg/dL) (70-110) mg/dL Total Protein (6.3-8.2) g/dL Albumin (3.5-5.0) g/dL Urine Glucose (UA) 4+ H (Negative) Urine Blood Trace H (Negative) Ur Leukocyte Esterase Large H (Negative) Urine RBC 12 H (0-5) /hpf Urine WBC 47 H (0-5) /hpf Urine WBC Clumps Occasional H (None) /hpf Urine Bacteria Many H (None) /hpf Urine Mucus Rare H (None) /hpf
[2023-09-19] MEDS: METOPROLOL SUCCINATE (ER) 25 MG TAB.ER.24H PO SCH (16:39)
[2023-09-19] MEDS: RIVAROXABAN 15 MG TAB PO SCH (16:40)
[2023-09-19] MEDS ORDERED: RIVAROXABAN 20 MG TAB PO SCH (17:30)
--- NOTE | 2023-09-19 17:45 | P.GSCN ---
History of Present Illness Consult date: 09/19/23 Reason for Consult: Left ureteral stone History of present illness: This is an 88-year-old male that presented to the hospital with left lower quadrant abdominal pain also been having subjective fevers and chills at home. In the ER he did have a low-grade fever at 100.7. He underwent a CT abdomen and pelvis that showed evidence of a 7 mm left-sided distal stone, and additionally his urine analysis was concerning for UTI. He is currently hemodynamically stable. He is continuing to have left lower quadrant and left flank pain. Denies any dysuria or gross hematuria. No previous known history of kidney stones. Review of Systems - Constitutional Reports chills, Reports fever - EENT Ears, nose, mouth and throat: Denies dysphagia - Cardiovascular Denies chest pain, Denies shortness of breath - Respiratory Denies cough, Denies 7 - Gastrointestinal Reports abdominal pain, Denies nausea, Denies vomiting - Genitourinary Reports flank pain, Reports kidney stones, Denies dysuria, Denies hematuria Past Medical History Past Medical History: Atrial Fibrillation, Atrial Flutter, Hypertension Additional Past Medical History / Comment(s): SEE DR SNYDER'S H&P. 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 History of Any Multi-Drug Resistant Organisms: C-DIFF Year Discovered:: 2014 MDRO Source:: STOOL Past Surgical History: Cardiac Ablation, Heart Catheterization, Pacemaker, Prostate Surgery Additional Past Surgical History / Comment(s): GULSHAN, cardioversion, cardiac ablation for aflutter, TURP, skin cancer removals, colonoscopy, bilateral cataract removals/lens implants. Past Anesthesia/Blood Transfusion Reactions: No Reported Reaction Additional Past Anesthesia/Blood Transfusion Reaction / Comm: . Type of Cardiac Device: Permanent Pacemaker Device Placement Date:: 02-01-15 Past Psychological History: No Psychological Hx Reported Smoking Status: Never smoker Past Alcohol Use History: None Reported Past Drug Use History: None Reported - Past Family History Father Family Medical History: Coronary Artery Disease (CAD) Additional Family Medical History / Comment(s): Father at the age of 76yrs. Mother Additional Family Medical History / Comment(s): ASHD, rheumatic heart disease. Mother at the age of 85 yrs. Medications and Allergies Home Medications Medication Instructions Recorded Confirmed Type Multivitamin [Men's Multi-Vitamin] 1 tab PO W/SUPPER 10/16/13 09/18/23 History Pravastatin Sodium [Pravachol] 20 mg PO HS 10/16/13 09/18/23 History Rivaroxaban [Xarelto] 20 mg PO W/SUPPER 10/16/13 09/18/23 History Fludrocortisone [Florinef] 0.1 mg PO DAILY 02/25/18 09/18/23 History Cholecalciferol [Vitamin D3 (25 25 mcg PO DAILY 02/22/23 09/18/23 History Mcg = 1000 Iu)] Metoprolol Succinate [Metoprolol 25 mg PO W/SUPPER 02/22/23 09/18/23 History Succinate ER] Mirtazapine 15 mg PO HS 02/22/23 09/18/23 History sitaGLIPtin [Januvia] 100 mg PO DAILY 02/22/23 09/18/23 History L.acidoph,Paracasei, B.lactis 1 cap PO W/SUPPER 03/18/23 09/18/23 History [Probiotic] Dapagliflozin Propanediol [Farxiga] 10 mg PO DAILY 09/18/23 09/18/23 History Ferrous Sulfate [Feosol] 325 mg PO DAILY 09/18/23 09/18/23 History glipiZIDE XL [Glucotrol Xl] 5 mg PO DAILY 09/18/23 09/18/23 History Allergies Allergy/AdvReac Type Severity Reaction Status Date / Time amoxicillin trihydrate AdvReac WEAKNESS, Verified 09/18/23 20:48 [From Augmentin] TIRED - AFTER BEING ON FOR SOME TIME ciprofloxacin [From Cipro] AdvReac Unknown Verified 09/18/23 20:48 potassium clavulanate AdvReac WEAKNESS, Verified 09/18/23 20:48 [From Augmentin] TIRED - AFTER BEING ON FOR SOME TIME Surgical - Exam Vital Signs Temp Pulse Resp BP Pulse Ox 99.1 F 92 18 98/60 96 09/18/23 19:09 09/18/23 19:09 09/18/23 19:09 09/18/23 19:09 09/18/23 19:09 - General no distress, moderate pain - Eyes normal ocular movement, no pale - ENT normal nares, normal mucosa - Respiratory normal expansion, normal respiratory effort - Abdomen Abdomen: soft, tender (Left lower quadrant), no distended - Psychiatric oriented to time, oriented to person, oriented to place Results - Labs 09/18/23 19:34 09/18/23 19:34 Abnormal Lab Results - Last 24 Hours (Table) 09/18/23 09/18/23 09/18/23 Range/Units 19:31 19:34 19:34 MCHC 30.7 L (31.0-37.0) g/dL Plt Count 112 L (150-450) k/uL Lymphocytes # (Manual) 0.19 L (1.0-4.8) k/uL Chloride 108 H (98-107) mmol/L BUN 38 H (9-20) mg/dL Creatinine 1.27 H (0.66-1.25) mg/dL Glucose 122 H (74-99) mg/dL POC Glucose (mg/dL) 123 H (70-110) mg/dL Total Protein 6.1 L (6.3-8.2) g/dL Albumin 3.3 L (3.5-5.0) g/dL Urine Glucose (UA) (Negative) Urine Blood (Negative) Ur Leukocyte Esterase (Negative) Urine RBC (0-5) /hpf Urine WBC (0-5) /hpf Urine WBC Clumps (None) /hpf Urine Bacteria (None) /hpf Urine Mucus (None) /hpf 09/18/23 Range/Units 21:17 MCHC (31.0-37.0) g/dL Plt Count (150-450) k/uL Lymphocytes # (Manual) (1.0-4.8) k/uL Chloride (98-107) mmol/L BUN (9-20) mg/dL Creatinine (0.66-1.25) mg/dL Glucose (74-99) mg/dL POC Glucose (mg/dL) (70-110) mg/dL Total Protein (6.3-8.2) g/dL Albumin (3.5-5.0) g/dL Urine Glucose (UA) 4+ H (Negative) Urine Blood Trace H (Negative) Ur Leukocyte Esterase Large H (Negative) Urine RBC 12 H (0-5) /hpf Urine WBC 47 H (0-5) /hpf Urine WBC Clumps Occasional H (None) /hpf Urine Bacteria Many H (None) /hpf Urine Mucus Rare H (None) /hpf Diabetes panel 09/18/23 Range/Units 19:34 Sodium 137 (137-145) mmol/L Potassium 4.2 (3.5-5.1) mmol/L Chloride 108 H (98-107) mmol/L Carbon Dioxide 23 (22-30) mmol/L BUN 38 H (9-20) mg/dL Creatinine 1.27 H (0.66-1.25) mg/dL Glucose 122 H (74-99) mg/dL Calcium 8.8 (8.4-10.2) mg/dL AST 42 (17-59) U/L ALT 21 (4-49) U/L Alkaline Phosphatase 81 (38-126) U/L Total Protein 6.1 L (6.3-8.2) g/dL Albumin 3.3 L (3.5-5.0) g/dL Calcium panel 09/18/23 Range/Units 19:34 Calcium 8.8 (8.4-10.2) mg/dL Albumin 3.3 L (3.5-5.0) g/dL Pituitary panel 09/18/23 Range/Units 19:34 Sodium 137 (137-145) mmol/L Potassium 4.2 (3.5-5.1) mmol/L Chloride 108 H (98-107) mmol/L Carbon Dioxide 23 (22-30) mmol/L BUN 38 H (9-20) mg/dL Creatinine 1.27 H (0.66-1.25) mg/dL Glucose 122 H (74-99) mg/dL Calcium 8.8 (8.4-10.2) mg/dL Adrenal panel 09/18/23 Range/Units 19:34 Sodium 137 (137-145) mmol/L Potassium 4.2 (3.5-5.1) mmol/L Chloride 108 H (98-107) mmol/L Carbon Dioxide 23 (22-30) mmol/L BUN 38 H (9-20) mg/dL Creatinine 1.27 H (0.66-1.25) mg/dL Glucose 122 H (74-99) mg/dL Calcium 8.8 (8.4-10.2) mg/dL Total Bilirubin 1.2 (0.2-1.3) mg/dL AST 42 (17-59) U/L ALT 21 (4-49) U/L Alkaline Phosphatase 81 (38-126) U/L Total Protein 6.1 L (6.3-8.2) g/dL Albumin 3.3 L (3.5-5.0) g/dL Assessment and Plan Assessment: 88-year-old with history of 7 mm left-sided distal ureteral stone, UTI, and a low-grade fever on presentation. Discussed with him given this finding he is at high risk of developing sepsis secondary to his stone. At this point discussed I do recommend proceeding with stent insertion, and will eventually require ureteroscopy with holmium laser and stent removal as an outpatient once his UTI resolves. Risk and benefit of rationale of surgery was discussed in detail -Keep n.p.o. -OR for left-sided ureteroscopy, holmium laser lithotripsy, stone basketing and stent insertion
[2023-09-19] MEDS: HYDROCORTISONE SUCCINATE 100 MG/2 ML VIAL IVP ONE (20:39)
[2023-09-19] MEDS: IV FLUID CONTINUATION 1,000 ML IV ONE (20:40)
[2023-09-19] MEDS ORDERED: PHENYLEPHRINE 10 MG/ML VIAL ONE (20:45)
[2023-09-19] MEDS ORDERED: PROPOFOL 10 MG/ML 20 ML VIAL IV ONE (20:45)
[2023-09-19] MEDS ORDERED: KETAMINE HCL IN 0.9 % NACL 50 MG/5 ML SYRINGE ONE (20:45)
[2023-09-19] MEDS ORDERED: MIDAZOLAM 2 MG/2 ML VIAL ONE (20:45)
[2023-09-19] MEDS: SODIUM CHLORIDE 0.9% 50 ML with GENTAMICIN 80 MG IV ONE (20:55)
[2023-09-19] MEDS: LACTATED RINGERS 1,000 ML IV ONE (21:09)
--- NOTE | 2023-09-19 21:17 | P.OP ---
Date of Procedure: 09/19/23 Preoperative Diagnosis: Left ureteral stone Postoperative Diagnosis: Same Procedure(s) Performed: Cystoscopy and a left-sided stent insertion Implants: 6 Syriac by 28 cm stent in the left ureter Anesthesia: MAC Surgeon: Wilber Cortes Estimated Blood Loss (ml): 1 Pathology: none sent Condition: stable Disposition: PACU Indications for Procedure: 88-year-old with history of 7 mm left-sided distal ureteral stone, UTI, and a low-grade fever on presentation. Discussed with him given this finding he is at high risk of developing sepsis secondary to his stone. At this point discussed I do recommend proceeding with stent insertion, and will eventually require ureteroscopy with holmium laser and stent removal as an outpatient once his UTI resolves. Risk and benefit of rationale of surgery was discussed in details. His blood cultures are growing gram-negative bacilli Operative Findings: Uncomplicated left ureteral stent insertion, purulent urine drained from the collecting Description of Procedure: lPatient brought the operating room, sedation was induced. He was prepped and draped in sterile fashion placed in dorsolithotomy position. Cystoscopy through the 21 Syriac sheath was inserted per urethra, cystoscopy was performed showed no abnormality within the bladder. There was cloudy urine within the bladder that was irrigated out, additionally there is a previous TURP defect. Attention was then carried to the left ureteral orifice which was intubated with a sensor wire. Next a ureteral stent was passed over the wire, the proximal curl was visualized on fluoroscopy and the distal curl was visualized using the cystoscope. Purulent urine drained from the collecting system. The bladder was emptied at the end of the case. Patient tolerated procedure well was taken to recovery in stable condition
[2023-09-19 21:27] LABS: Glucose,Whole Blood 80 mg/dL (70-110)
--- NOTE | 2023-09-19 21:35 | FL ---
Fluoroscopic guidance operating room. HISTORY: Ureteral stent placement. COMPARISON: None. A single spot film and 2.9 seconds of fluoroscopy was provided for the placement of a ureteral stent.
[2023-09-20] MEDS: PRAVASTATIN SODIUM 20 MG TAB PO SCH (00:56)
[2023-09-20] MEDS: MIRTAZAPINE 15 MG TAB PO SCH (00:56)
--- NOTE | 2023-09-20 07:45 | P.PN ---
Subjective Progress Note Date: 09/20/23 No acute overnight event, denies any flank pain this morning. Blood cultures growing gram-negative bacilli. Objective - Vital Signs Vital signs: Vital Signs Temp 98.5 F 09/20/23 04:00 Pulse 70 09/20/23 04:00 Resp 19 09/20/23 04:00 BP 114/64 09/20/23 04:00 Pulse Ox 95 09/20/23 04:00 FiO2 Intake & Output 09/19/23 09/20/23 09/20/23 18:59 06:59 18:59 Intake Total 252 Output Total 445 Balance -193 Intake: IV 252 Output: Urine 400 Post Void Residual 45 Other: Voiding Method Toilet Toilet # Voids 1 2 - Constitutional General appearance: Present: no acute distress - Gastrointestinal General gastrointestinal: Present: soft. Absent: distended, tenderness - Psychiatric Psychiatric: Present: A&O x's 3 - Labs CBC & Chem 7: 09/18/23 19:34 09/18/23 19:34 Labs: Microbiology - Last 24 Hours (Table) 09/18/23 19:50 Blood Culture Gram Stain - Preliminary Blood Blood Culture - Preliminary Molecular ID 09/18/23 20:00 Blood Culture Gram Stain - Preliminary Blood Assessment and Plan Assessment: 88-year-old male with a history of sepsis secondary to a 7 mm left-sided distal stone. Underwent left-sided stent insertion on September 18. Blood cultures growing gram-negative bacilli. -Recommend keeping in the hospital until cultures finalize, -Will be set up for left-sided ureteroscopy with holmium laser and stent removal as an outpatient once UTI and sepsis resolves
--- NOTE | 2023-09-20 15:24 | P.PN ---
Subjective Progress Note Date: 09/20/23 Pt c/o ongoing abd pain, but much improved. s/p NUS placement by urology. Micro growing GNR in blood and urine Gen: In NAD, non-toxic HEENT: normocephalic, atraumatic, hearing acuity is intant, mucous membranes moist CVS: perfusing all extremities well, no pitting edema, Respiratory: symmetric chest expansion, no accessory muscle use, GI: soft, NTTP, ND, : no suprapubic tenderness, no CVA tenderness MSK/Derm: no rashes, cyanosis Neuro: CN II-XII intact, no motor weakness, Psych: cooperative, euthymic mood, judgment and insight is intact Hospital course: Patient is a 88-year-old male with a PMH of type II DM, A-fib on Xarelto, status post biventricular pacemaker placement, hypertension, BPH status post TURP, and nephrolithiasis who presented to the emergency room with complaints of left flank pain. CT abdomen and pelvis in the emergency room revealed moderate left- sided hydroureteronephrosis secondary to a 7 mm calculus at the UV junction as well as prostatomegaly. Chest x-ray revealed findings of chronic COPD with EKG showing V paced rhythm at 93 bpm. Laboratory evaluation was remarkable for platelet count of 112, BUN 38, creatinine 1.27, UA grossly abnormal, and glucose 122. The patient had a Tmax of 100.7 F in the emergency room with pulse of 102. Assessment/plan: Sepsis secondary to obstructive nephrolithiasis with hydroureteronephrosis KOTA, likely due to above Thrombocytopenia, similar to baseline -Continue with ceftriaxone 2 g every 24 hours -Urology consulted, s/p NUS placement on 09/18 -Continue with normal saline 130 cc/h -Follow-up urine and blood cultures = GNR -Monitor CBC and BMP Chronic conditions: A-fib, status post biventricular pacemaker, hypertension, BPH -Resume home medications once reconciled DVT prophylaxis: Xarelto The patient is admitted with an anticipated greater than than 2 midnight stay for evaluation of nephrolithiasis CODE STATUS: No Code Discussed with: Patient Anticipated discharge place: Home Objective - Vital Signs Vital signs: Vital Signs Temp 97.7 F 09/20/23 08:00 Pulse 70 09/20/23 12:00 Resp 16 09/20/23 12:00 BP 128/68 09/20/23 12:00 Pulse Ox 99 09/20/23 12:00 FiO2 Intake & Output 09/19/23 09/20/23 09/20/23 18:59 06:59 18:59 Intake Total 252 118 Output Total 445 400 Balance -193 -282 Intake: IV 252 Oral 118 Output: Urine 400 400 Post Void Residual 45 Other: Voiding Method Toilet Toilet Toilet # Voids 1 2 - Labs CBC & Chem 7: 09/18/23 19:34 09/18/23 19:34 Labs: Microbiology - Last 24 Hours (Table) 09/18/23 21:17 Urine Culture - Preliminary Urine,Voided Gram Neg Bacilli 09/18/23 20:00 Blood Culture Gram Stain - Preliminary Blood Blood Culture - Preliminary Gram Neg Bacilli 09/18/23 19:50 Blood Culture Gram Stain - Preliminary Blood Blood Culture - Preliminary Molecular ID
[2023-09-21 07:48] LABS: Basophils % (A) 0 %; Eosinophils # (A) 0.1 k/uL (0-0.7); Eosinophils % (A) 1 %; HCT 37.5 % (39.0-53.0); HGB 11.7 gm/dL (13.0-17.5); Lymphocytes # (A) 0.4 k/uL (1.0-4.8); Lymphocytes % (A) 5 %; MCH 27.3 pg (25.0-35.0); MCHC 31.3 g/dL (31.0-37.0); MCV 87.3 fL (80.0-100.0); Mean Platelet Volume 8.8; Monocytes # (A) 0.2 k/uL (0-1.0); Monocytes % (A) 3 %; Neutrophils # (A) 6.8 k/uL (1.3-7.7); Neutrophils % (A) 90 %; RDW 15.2 % (11.5-15.5); WBC 7.6 k/uL (3.8-10.6)
[2023-09-21 07:58] LABS: African American GFR (CKD) 62 (>60 ml/min/1.73 sqM); Anion Gap 8 mmol/L; Blood Urea Nitrogen 34 mg/dL (9-20); Calcium 8.1 mg/dL (8.4-10.2); Carbon Dioxide 20 mmol/L (22-30); Chloride 114 mmol/L (98-107); Glucose 75 mg/dL (74-99); Non-African American GFR(CKD) 54 (>60 ml/min/1.73 sqM); Potassium 3.8 mmol/L (3.5-5.1); Sodium 142 mmol/L (137-145)
[2023-09-21 09:06] LABS: Platelet Count 88 k/uL (150-450); RBC Morphology Normal
--- NOTE | 2023-09-21 11:32 | P.PN ---
Subjective Progress Note Date: 09/21/23 No acute overnight event, denies any flank pain this morning or gross hematuria. White count within normal limits, creatinine 1.2. Blood and urine cultures growing gram-negative bacilli. Objective - Vital Signs Vital signs: Vital Signs Temp 97.7 F 09/21/23 11:03 Pulse 65 09/21/23 11:03 Resp 18 09/21/23 11:03 BP 155/73 09/21/23 11:03 Pulse Ox 98 09/21/23 11:03 FiO2 Intake & Output 09/20/23 09/21/23 09/21/23 18:59 06:59 18:59 Intake Total 236 540 Output Total 650 1000 700 Balance -414 460 -700 Intake: Oral 236 540 Output: Urine 650 1000 700 Other: Voiding Method Toilet Toilet Toilet # Voids 1 # Bowel Movements 1 - Constitutional General appearance: Present: no acute distress - Gastrointestinal General gastrointestinal: Present: soft. Absent: distended, tenderness - Psychiatric Psychiatric: Present: A&O x's 3 - Labs CBC & Chem 7: 09/21/23 06:48 09/21/23 06:48 Labs: Abnormal Lab Results - Last 24 Hours (Table) 09/21/23 09/21/23 Range/Units 06:48 06:48 Hgb 11.7 L (13.0-17.5) gm/dL Hct 37.5 L (39.0-53.0) % Plt Count 88 L (150-450) k/uL Lymphocytes # 0.4 L (1.0-4.8) k/uL Chloride 114 H (98-107) mmol/L Carbon Dioxide 20 L (22-30) mmol/L BUN 34 H (9-20) mg/dL Calcium 8.1 L (8.4-10.2) mg/dL Microbiology - Last 24 Hours (Table) 09/18/23 21:17 Urine Culture - Preliminary Urine,Voided Gram Neg Bacilli 09/18/23 20:00 Blood Culture Gram Stain - Preliminary Blood Blood Culture - Preliminary Gram Neg Bacilli Assessment and Plan Assessment: 88-year-old male with a history of sepsis secondary to a 7 mm left-sided distal stone. Underwent left-sided stent insertion on September 18. Blood cultures growing gram-negative bacilli. -Recommend keeping in the hospital until cultures finalize, -Will be set up for left-sided ureteroscopy with holmium laser and stent removal as an outpatient once UTI and sepsis resolves
--- NOTE | 2023-09-21 13:49 | P.PN ---
Subjective Progress Note Date: 09/21/23 Pt has no new complaints Gen: In NAD, non-toxic HEENT: normocephalic, atraumatic, hearing acuity is intant, mucous membranes moist CVS: perfusing all extremities well, no pitting edema, Respiratory: symmetric chest expansion, no accessory muscle use, GI: soft, NTTP, ND, : no suprapubic tenderness, no CVA tenderness MSK/Derm: no rashes, cyanosis Neuro: CN II-XII intact, no motor weakness, Psych: cooperative, euthymic mood, judgment and insight is intact Hospital course: Patient is a 88-year-old male with a PMH of type II DM, A-fib on Xarelto, status post biventricular pacemaker placement, hypertension, BPH status post TURP, and nephrolithiasis who presented to the emergency room with complaints of left flank pain. CT abdomen and pelvis in the emergency room revealed moderate left-sided hydroureteronephrosis secondary to a 7 mm calculus at the UV junction as well as prostatomegaly. Chest x-ray revealed findings of chronic COPD with EKG showing V paced rhythm at 93 bpm. Laboratory evaluation was remarkable for platelet count of 112, BUN 38, creatinine 1.27, UA grossly abnormal, and glucose 122. The patient had a Tmax of 100.7 F in the emergency room with pulse of 102. Assessment/plan: Sepsis secondary to obstructive nephrolithiasis with hydroureteronephrosis KOTA, likely due to above Thrombocytopenia, similar to baseline -Continue with ceftriaxone 2 g every 24 hours -Urology consulted, s/p NUS placement on 09/18 -Continue with normal saline 130 cc/h -Follow-up urine and blood cultures = GNR, speciation pending -Monitor CBC and BMP Chronic conditions: A-fib, status post biventricular pacemaker, hypertension, BPH -Resume home medications once reconciled DVT prophylaxis: Xarelto The patient is admitted with an anticipated greater than than 2 midnight stay for evaluation of nephrolithiasis CODE STATUS: No Code Discussed with: Patient Anticipated discharge place: Home Objective - Vital Signs Vital signs: Vital Signs Temp 97.7 F 09/21/23 11:03 Pulse 65 09/21/23 11:03 Resp 18 09/21/23 11:03 BP 155/73 09/21/23 11:03 Pulse Ox 98 09/21/23 11:03 FiO2 Intake & Output 09/20/23 09/21/23 09/21/23 18:59 06:59 18:59 Intake Total 236 540 Output Total 650 1000 700 Balance -414 460 -700 Intake: Oral 236 540 Output: Urine 650 1000 700 Other: Voiding Method Toilet Toilet Toilet # Voids 1 # Bowel Movements 1 - Labs CBC & Chem 7: 09/21/23 06:48 09/21/23 06:48 Labs: Abnormal Lab Results - Last 24 Hours (Table) 09/21/23 09/21/23 Range/Units 06:48 06:48 Hgb 11.7 L (13.0-17.5) gm/dL Hct 37.5 L (39.0-53.0) % Plt Count 88 L (150-450) k/uL Lymphocytes # 0.4 L (1.0-4.8) k/uL Chloride 114 H (98-107) mmol/L Carbon Dioxide 20 L (22-30) mmol/L BUN 34 H (9-20) mg/dL Calcium 8.1 L (8.4-10.2) mg/dL Microbiology - Last 24 Hours (Table) 09/18/23 19:50 Blood Culture Gram Stain - Preliminary Blood Blood Culture - Preliminary Gram Neg Bacilli Molecular ID 09/18/23 21:17 Urine Culture - Preliminary Urine,Voided Gram Neg Bacilli
[2023-09-21 16:15] LABS: Glucose,Whole Blood 136 mg/dL (70-110)
[2023-09-21 19:44] LABS: Glucose,Whole Blood 146 mg/dL (70-110)
[2023-09-22 06:19] LABS: Glucose,Whole Blood 120 mg/dL (70-110)
[2023-09-22 11:28] LABS: Glucose,Whole Blood 106 mg/dL (70-110)
--- NOTE | 2023-09-22 11:41 | P.DS ---
Providers Date of admission: 09/18/23 21:51 Expected date of discharge: 09/22/23 Attending physician: Justin Reed MD Consults: 09/18/23 21:49 Consult Physician Urgent Consulting Provider: Wilber Cortes Consult Reason/Comments: UTI, obstructing stone Do you want consulting provider notified?: Already Contacted Primary care physician: Nestor Harris MD Hospital Course: Sepsis secondary to obstructive nephrolithiasis with hydroureteronephrosis KOTA, likely due to above Thrombocytopenia, similar to baseline Chronic conditions: A-fib, status post biventricular pacemaker, hypertension, BPH Gen: In NAD, non-toxic HEENT: normocephalic, atraumatic, hearing acuity is intant, mucous membranes moist CVS: perfusing all extremities well, no pitting edema, Respiratory: symmetric chest expansion, no accessory muscle use, GI: soft, NTTP, ND, : no suprapubic tenderness, no CVA tenderness MSK/Derm: no rashes, cyanosis Neuro: CN II-XII intact, no motor weakness, Psych: cooperative, euthymic mood, judgment and insight is intact Hospital course: Patient is a 88-year-old male with a PMH of type II DM, A-fib on Xarelto, status post biventricular pacemaker placement, hypertension, BPH status post TURP, and nephrolithiasis who presented to the emergency room with complaints of left flank pain. CT abdomen and pelvis in the emergency room revealed moderate left- sided hydroureteronephrosis secondary to a 7 mm calculus at the UV junction as well as prostatomegaly. Chest x-ray revealed findings of chronic COPD with EKG showing V paced rhythm at 93 bpm. Laboratory evaluation was remarkable for platelet count of 112, BUN 38, creatinine 1.27, UA grossly abnormal, and glucose 122. The patient had a Tmax of 100.7 F in the emergency room with pulse of 102. Pt was taken to the OR on 09/18 and had a NUS placed. UCx and BCx grew E coli, pansensitive. Pts flank pain improved with NUS and abx. He was discharged home with a total 10 day course of abx, to be completed with cefdinir for an additional 6 days. F/u was arranged with PCP and urology. I spent 34 min coordinating this discharge Patient Condition at Discharge: Good Plan - Discharge Summary Discharge Rx Participant: Yes New Discharge Prescriptions: New Cefdinir [Omnicef] 300 mg PO Q12HR #12 capsule Acetaminophen Tab [Tylenol] 650 mg PO Q6HR PRN tab PRN Reason: Mild Pain Or Fever > 100.5 Continue Rivaroxaban [Xarelto] 20 mg PO W/SUPPER Pravastatin Sodium [Pravachol] 20 mg PO HS Multivitamin [Men's Multi-Vitamin] 1 tab PO W/SUPPER Fludrocortisone [Florinef] 0.1 mg PO DAILY Mirtazapine 15 mg PO HS Metoprolol Succinate [Metoprolol Succinate ER] 25 mg PO W/SUPPER sitaGLIPtin [Januvia] 100 mg PO DAILY Dapagliflozin Propanediol [Farxiga] 10 mg PO DAILY Cholecalciferol [Vitamin D3 (25 Mcg = 1000 Iu)] 25 mcg PO DAILY L.acidoph,Paracasei, B.lactis [Probiotic] 1 cap PO W/SUPPER glipiZIDE XL [Glucotrol XL] 5 mg PO DAILY Ferrous Sulfate [Iron (65 MG Elemental)] 325 mg PO DAILY Discharge Medication List Multivitamin [Men's Multi-Vitamin] 1 tab PO W/SUPPER 10/16/13 [History] Pravastatin Sodium [Pravachol] 20 mg PO HS 10/16/13 [History] Rivaroxaban [Xarelto] 20 mg PO W/SUPPER 10/16/13 [History] Fludrocortisone [Florinef] 0.1 mg PO DAILY 02/25/18 [History] Cholecalciferol [Vitamin D3 (25 Mcg = 1000 Iu)] 25 mcg PO DAILY 02/22/23 [History] Metoprolol Succinate [Metoprolol Succinate ER] 25 mg PO W/SUPPER 02/22/23 [History] Mirtazapine 15 mg PO HS 02/22/23 [History] sitaGLIPtin [Januvia] 100 mg PO DAILY 02/22/23 [History] L.acidoph,Paracasei, B.lactis [Probiotic] 1 cap PO W/SUPPER 03/18/23 [History] Dapagliflozin Propanediol [Farxiga] 10 mg PO DAILY 09/18/23 [History] Ferrous Sulfate [Iron (65 MG Elemental)] 325 mg PO DAILY 09/18/23 [History] glipiZIDE XL [Glucotrol XL] 5 mg PO DAILY 09/18/23 [History] Acetaminophen Tab [Tylenol] 650 mg PO Q6HR PRN tab 09/22/23 [Rx] Cefdinir [Omnicef] 300 mg PO Q12HR #12 capsule 09/22/23 [Rx] Follow up Appointment(s)/Referral(s): Nestor Harris MD [Primary Care Provider] - 1-2 days Wilber Cortes MD [STAFF PHYSICIAN] - 1 Week Discharge Disposition: HOME SELF-CARE
--- NOTE | 2023-09-22 13:38 | P.PN ---
Subjective Progress Note Date: 09/22/23 No acute overnight event, denies any flank pain this morning or gross hematuria. White count within normal limits, . Blood and urine cultures growing huerta susceptible E. coli Objective - Vital Signs Vital signs: Vital Signs Temp 98.5 F 09/22/23 11:47 Pulse 70 09/22/23 11:47 Resp 20 09/22/23 11:47 BP 137/79 09/22/23 11:47 Pulse Ox 98 09/22/23 11:47 FiO2 Intake & Output 09/21/23 09/22/23 09/22/23 18:59 06:59 18:59 Intake Total 240 480 Output Total 1325 700 375 Balance -1085 -700 105 Weight 87.7 kg Intake: Oral 240 480 Output: Urine 1325 700 375 Other: Voiding Method Toilet Toilet Toilet Urinal # Voids 1 1 # Bowel Movements 1 1 - Constitutional General appearance: Present: no acute distress - Psychiatric Psychiatric: Present: A&O x's 3 - Labs CBC & Chem 7: 09/21/23 06:48 09/21/23 06:48 Labs: Abnormal Lab Results - Last 24 Hours (Table) 09/21/23 09/21/23 09/22/23 Range/Units 16:12 19:43 06:17 POC Glucose (mg/dL) 136 H 146 H 120 H (70-110) mg/dL Microbiology - Last 24 Hours (Table) 09/18/23 20:00 Blood Culture Gram Stain - Final Blood Blood Culture - Final Escherichia coli 09/18/23 19:50 Blood Culture Gram Stain - Final Blood Blood Culture - Final Escherichia coli Molecular ID 09/18/23 21:17 Urine Culture - Final Urine,Voided Escherichia coli Assessment and Plan Assessment: 88-year-old male with a history of sepsis secondary to a 7 mm left-sided distal stone. Underwent left-sided stent insertion on September 18. Blood cultures growing huerta susceptible E. coli -Okay for discharge from urology standpoint with p.o. antibiotics -Will be set up for left-sided ureteroscopy with holmium laser and stent removal as an outpatient once UTI and sepsis resolves
[2023-09-22 16:24] LABS: Glucose,Whole Blood 139 mg/dL (70-110)
[2023-09-22 20:12] LABS: Glucose,Whole Blood 122 mg/dL (70-110)
[2023-09-23 02:39] VITALS: RESP 16
[2023-09-23 07:09] LABS: Glucose,Whole Blood 103 mg/dL (70-110)
[2023-09-23 11:58] LABS: Glucose,Whole Blood 164 mg/dL (70-110)
--- NOTE | 2023-09-23 16:10 | P.PN ---
Subjective Progress Note Date: 09/23/23 Pt has no new complaints, pending placement Gen: In NAD, non-toxic HEENT: normocephalic, atraumatic, hearing acuity is intant, mucous membranes moist CVS: perfusing all extremities well, no pitting edema, Respiratory: symmetric chest expansion, no accessory muscle use, GI: soft, NTTP, ND, : no suprapubic tenderness, no CVA tenderness MSK/Derm: no rashes, cyanosis Neuro: CN II-XII intact, no motor weakness, Psych: cooperative, euthymic mood, judgment and insight is intact Hospital course: Patient is a 88-year-old male with a PMH of type II DM, A-fib on Xarelto, status post biventricular pacemaker placement, hypertension, BPH status post TURP, and nephrolithiasis who presented to the emergency room with complaints of left flank pain. CT abdomen and pelvis in the emergency room revealed moderate left- sided hydroureteronephrosis secondary to a 7 mm calculus at the UV junction as well as prostatomegaly. Chest x-ray revealed findings of chronic COPD with EKG showing V paced rhythm at 93 bpm. Laboratory evaluation was remarkable for platelet count of 112, BUN 38, creatinine 1.27, UA grossly abnormal, and glucose 122. The patient had a Tmax of 100.7 F in the emergency room with pulse of 102. Assessment/plan: Sepsis secondary to obstructive nephrolithiasis with hydroureteronephrosis KOTA, likely due to above Thrombocytopenia, similar to baseline -Continue with ceftriaxone 2 g every 24 hours -Urology consulted, s/p NUS placement on 09/18 -Continue with normal saline 130 cc/h -Follow-up urine and blood cultures = E. coli, pansensitive -Monitor CBC and BMP -PT/OT recommending rehab, case management working on dispo, OBRA will need to b e completed Chronic conditions: A-fib, status post biventricular pacemaker, hypertension, BPH -Resume home medications once reconciled DVT prophylaxis: Xarelto The patient is admitted with an anticipated greater than than 2 midnight stay for evaluation of nephrolithiasis CODE STATUS: No Code Discussed with: Patient Anticipated discharge place: Home Objective - Vital Signs Vital signs: Vital Signs Temp 97.8 F 09/23/23 13:48 Pulse 69 09/23/23 13:48 Resp 16 09/23/23 13:48 BP 147/61 09/23/23 13:48 Pulse Ox 100 09/23/23 13:48 FiO2 Intake & Output 09/22/23 09/23/23 09/23/23 18:59 06:59 18:59 Intake Total 1428 Output Total 600 500 950 Balance 828 -500 -950 Intake: Intake, IV Titration 830 Amount Sodium Chloride 0.9% 1, 780 000 ml @ 130 mls/hr IV . Q7H42M [facility] Rx#:[id number] cefTRIAXone 2 gm In 50 Sodium Chloride 0.9% 50 ml @ 100 mls/hr IVPB Q24H [facility] Rx#:[id number] Oral 598 Output: Urine 600 500 950 Other: Voiding Method Toilet Urinal Urinal Urinal # Voids 1 # Bowel Movements 1 - Labs CBC & Chem 7: 09/21/23 06:48 09/21/23 06:48 Labs: Abnormal Lab Results - Last 24 Hours (Table) 09/22/23 09/22/23 09/23/23 Range/Units 16:23 20:10 11:58 POC Glucose (mg/dL) 139 H 122 H 164 H (70-110) mg/dL Microbiology - Last 24 Hours (Table) 09/18/23 20:00 Blood Culture Gram Stain - Final Blood Blood Culture - Final Escherichia coli 09/18/23 19:50 Blood Culture Gram Stain - Final Blood Blood Culture - Final Escherichia coli Molecular ID
[2023-09-23 17:11] LABS: Glucose,Whole Blood 195 mg/dL (70-110)
[2023-09-23 20:33] LABS: Glucose,Whole Blood 238 mg/dL (70-110)
--- NOTE | 2023-09-23 21:22 | US ---
EXAMINATION TYPE: US venous doppler duplex UE LT DATE OF EXAM: 09/23/2023 COMPARISON: NONE CLINICAL INDICATION: Male, 88 years old with history of r/o LUE DVT; swelling in lt arm SIDE PERFORMED: Left The deep venous system of the left upper extremity is patent and compressible with augmentable flow a nd normal waveforms. IMPRESSION: No evidence of left upper extremity DVT.
[2023-09-24 07:22] LABS: Glucose,Whole Blood 148 mg/dL (70-110)
[2023-09-24 08:13] VITALS: BP 147/70; PULSE 65; TEMP 98
--- NOTE | 2023-09-24 10:51 | P.DS ---
Providers Date of admission: 09/18/23 21:51 Expected date of discharge: 09/24/23 Attending physician: Justin Reed MD Consults: 09/18/23 21:49 Consult Physician Urgent Consulting Provider: Wilber Cortes Consult Reason/Comments: UTI, obstructing stone Do you want consulting provider notified?: Already Contacted Primary care physician: Nestor Harris MD Hospital Course: Discharge Diagnosis: E. Coli UTI and Bactermia Diabetes, Type II KOTA, resolved, underlying CKD stage III Thrombocytopenia at baseline Ureterolithiasis with moderate left-sided hydro status post stent placement Atrial fibrillation anticoagulated with Xarelto status post pacemaker Hypertension BPH Hospital Course: -year-old male with a history of diabetes mellitus type 2 on oral medications, A-fib on Xarelto, hypertension, BPH status post TURP, and nephrolithiasis who initially presented to the emergency room with complaints of left-sided flank pain. On arrival to the ER his vital signs were within normal limits. However he then became slightly hypotensive and spiked a fever of 100.7. Initial laboratory analysis in the ER was remarkable for white blood cell count of 6.4, platelets of 112. CT abdomen and pelvis was completed which showed moderate left-sided hydroureter nephrosis with a 7 mm calculus of the left ureterovesical junction. Urinalysis was consistent with urinary tract infection. Patient was started on Rocephin and arrangements were made for admission. Urology was consulted. Patient underwent cystoscopy with left sided ureter stent insertion on 09/19/2023. He tolerated the procedure well without any postoperative complications. His urine cultures and blood cultures came back with E. coli. Blood culture showing ESBL E. coli. He continued to improve throughout his hospital stay. He did develop some left upper extremity swelling and underwent left upper extremity venous Doppler which demonstrated no signs of DVT. Continued to do well and was determined stable for discharge. He was seen by physical and Occupational Therapy who did recommend rehab. Follow-up: Patient will complete 14 days of oral Bactrim for his ESBL pyelonephritis with bacteremia. He will follow-up with Dr. Malin in 1 week. He will have his basic metabolic profile measured every 3 days while requiring Bactrim. His home medication changes including discontinuing glipizide as patient's blood sugars had remained in the normal range during hospital stay. Patient seen and examined at bedside. Doing well. Denies any nausea, vomiting, diarrhea, no chest pain, no shortness of breath. Does have some left sided elbow swelling Vital signs reviewed and stable. General: Nontoxic, no distress, appears at stated age Cardiovascular: S1S2 reg, no murmur, positive posterior tibial pulse bilateral, Lungs: CTA bilateral, no rhonchi, no rales, no accessory muscle use Abdominal: Soft, nontender to palpation, no guarding, no appreciable org anomegaly Ext: No gross muscle atrophy, no edema b/l lower extremities, no contractures Left elbow with pitting edema, no swelling in the hand or shoulder, no erythema, no warmth Neuro: CN II-XI grossly intact, no focal neuro deficits Psych: Alert, oriented, appropriate affect A total of 35 minutes of time were spent preparing this complex discharge summary. Patient was discharged on 09/24/23. This dictation was prepared using [employer] voice recognition software. Though every attempt is made to correct errors during dictation some may still exist. Patient Condition at Discharge: Good Plan - Discharge Summary Discharge Rx Participant: Yes New Discharge Prescriptions: New Acetaminophen Tab [Tylenol] 650 mg PO Q6HR PRN tab PRN Reason: Mild Pain Or Fever > 100.5 Sulfamethox-Tmp 800-160Mg [Bactrim DS 800-160 mg] 1 tab PO Q12HR #28 tab Continue Rivaroxaban [Xarelto] 20 mg PO W/SUPPER Pravastatin Sodium [Pravachol] 20 mg PO HS Multivitamin [Men's Multi-Vitamin] 1 tab PO W/SUPPER Fludrocortisone [Florinef] 0.1 mg PO DAILY Mirtazapine 15 mg PO HS Metoprolol Succinate [Metoprolol Succinate ER] 25 mg PO W/SUPPER sitaGLIPtin [Januvia] 100 mg PO DAILY Dapagliflozin Propanediol [Farxiga] 10 mg PO DAILY Cholecalciferol [Vitamin D3 (25 Mcg = 1000 Iu)] 25 mcg PO DAILY L.acidoph,Paracasei, B.lactis [Probiotic] 1 cap PO W/SUPPER Ferrous Sulfate [Iron (65 MG Elemental)] 325 mg PO DAILY Discontinued glipiZIDE XL [Glucotrol XL] 5 mg PO DAILY Discharge Medication List Multivitamin [Men's Multi-Vitamin] 1 tab PO W/SUPPER 10/16/13 [History] Pravastatin Sodium [Pravachol] 20 mg PO HS 10/16/13 [History] Rivaroxaban [Xarelto] 20 mg PO W/SUPPER 10/16/13 [History] Fludrocortisone [Florinef] 0.1 mg PO DAILY 02/25/18 [History] Cholecalciferol [Vitamin D3 (25 Mcg = 1000 Iu)] 25 mcg PO DAILY 02/22/23 [History] Metoprolol Succinate [Metoprolol Succinate ER] 25 mg PO W/SUPPER 02/22/23 [History] Mirtazapine 15 mg PO HS 02/22/23 [History] sitaGLIPtin [Januvia] 100 mg PO DAILY 02/22/23 [History] L.acidoph,Paracasei, B.lactis [Probiotic] 1 cap PO W/SUPPER 03/18/23 [History] Dapagliflozin Propanediol [Farxiga] 10 mg PO DAILY 09/18/23 [History] Ferrous Sulfate [Iron (65 MG Elemental)] 325 mg PO DAILY 09/18/23 [History] Acetaminophen Tab [Tylenol] 650 mg PO Q6HR PRN tab 09/22/23 [Rx] Sulfamethox-Tmp 800-160Mg [Bactrim DS 800-160 mg] 1 tab PO Q12HR #28 tab 09/24/23 [Rx] Follow up Appointment(s)/Referral(s): Nestor Harris MD [Primary Care Provider] - 1-2 days (PLEASE CALL OFFICE WHEN OPEN TO MAKE FOLLOW UP APPOINTMENT) Wilber Cortes MD [STAFF PHYSICIAN] - 1 Week (PLEASE CALL OFFICE WHEN OPEN TO MAKE FOLLOW UP APPOINTMNET) Activity/Diet/Wound Care/Special Instructions: Activity: As tolerated Diet: Carb consistent, heart healthy Special Instructions: Please check BMP every 3 days while on bactrim DX: CKD Monitor blood sugar twice daily Monitor temperature twice daily until 7 days after antibiotic complete Keep left arm elevated, use BLANCHE wrap 8 hours daily until swelling resolved Discharge Disposition: HOME SELF-CARE
[2023-09-24 11:01] LABS: HCT 41.6 % (39.0-53.0); HGB 12.8 gm/dL (13.0-17.5); Hypochromasia Slight; MCH 26.9 pg (25.0-35.0); MCHC 30.7 g/dL (31.0-37.0); MCV 87.9 fL (80.0-100.0); Mean Platelet Volume 8.5; Platelet Count 101 k/uL (150-450); RBC 4.74 m/uL (4.30-5.90); WBC 4.7 k/uL (3.8-10.6)
[2023-09-24 11:16] LABS: African American GFR (CKD) 78 (>60 ml/min/1.73 sqM); Anion Gap 4 mmol/L; Blood Urea Nitrogen 20 mg/dL (9-20); Calcium 8.3 mg/dL (8.4-10.2); Carbon Dioxide 26 mmol/L (22-30); Chloride 109 mmol/L (98-107); Glucose 172 mg/dL (74-99); Non-African American GFR(CKD) 68 (>60 ml/min/1.73 sqM); Potassium 3.6 mmol/L (3.5-5.1); Sodium 139 mmol/L (137-145)
[2023-09-24 12:03] LABS: Glucose,Whole Blood 131 mg/dL (70-110)
== END 2023-09-24 15:26 | DRG 854 ==
LOC: EC 19:08 → 3SCARD 21:51 → 5NMEDONC 09-22 20:59
PROVIDERS: ADMIT Internal Medicine; ATTEND Internal Medicine
PROC: 0T778DZ Dilation of Left Ureter with Intraluminal Device, Via Natural or Artificial Opening Endoscopic (ICD-10-PCS; principal; 2023-09-19 10:45)
DX: A41.51 Sepsis due to Escherichia coli [E. coli] (principal); I13.0 Hypertensive heart and chronic kidney disease with heart failure and stage 1 through stage 4 chronic kidney disease, or unspecified chronic kidney disease; N13.6 Pyonephrosis; N17.9 Acute kidney failure, unspecified; D69.6 Thrombocytopenia, unspecified; N40.0 Benign prostatic hyperplasia without lower urinary tract symptoms; N18.30 Chronic kidney disease, stage 3 unspecified; J44.9 Chronic obstructive pulmonary disease, unspecified; I50.9 Heart failure, unspecified; I95.9 Hypotension, unspecified; I48.0 Paroxysmal atrial fibrillation; E11.22 Type 2 diabetes mellitus with diabetic chronic kidney disease; I49.5 Sick sinus syndrome; Z66 Do not resuscitate; R25.1 Tremor, unspecified; Z95.0 Presence of cardiac pacemaker; Z79.01 Long term (current) use of anticoagulants; Z88.0 Allergy status to penicillin; Z88.1 Allergy status to other antibiotic agents; Z85.828 Personal history of other malignant neoplasm of skin; Z79.899 Other long term (current) drug therapy; Z79.84 Long term (current) use of oral hypoglycemic drugs; Z79.52 Long term (current) use of systemic steroids; Z28.310 Unvaccinated for COVID-19
CPT/HCPCS: 36415; 51701; 71046; 74176; 80048; 80053; 81001; 82150; 83605; 83690; 83735; 85025; 85027; 87040; 87077; 87086; 87186; 87636; 96361; 96365; 96375; 99291

== ENCOUNTER → 2023-10-10 | Outpatient (CLI) | payer MEDICARE ==
[2023-10-11 02:18] LABS: Appearance,Urine Cloudy (Clear); Bilirubin,Urine Small (Negative); Blood,Urine Moderate (Negative); Color,Urine Red (Yellow); Ketones,Urine Negative (Negative); Nitrite,Urine Negative (Negative); Specific Gravity,Urine 1.025 (1.001-1.030); Urobilinogen,Urine 0.2 E.U./DL
[2023-10-11 02:36] LABS: BUN/Creat Ratio 19.71 Ratio (12.00-20.00); Blood Urea Nitrogen 33.5 mg/dL (9.0-27.0); Carbon Dioxide 25.8 mmol/L (21.6-31.8); Chloride 102 mmol/L (96-109); Glucose 178 mg/dL (70-110); Potassium 5.1 mmol/L (3.5-5.5); Sodium 138 mmol/L (135-145)
[2023-10-11 02:38] LABS: Basophils # (A) 0.04 X 10*3/uL (0.00-0.10); Basophils % (A) 0.7 %; Eosinophils # (A) 0.12 X 10*3/uL (0.04-0.35); Eosinophils % (A) 2.2 %; HCT 37.3 % (39.6-50.0); HGB 11.2 g/dL (13.0-17.0); Lymphocytes # (A) 1.46 X 10*3/uL (0.90-5.00); MCH 26.2 pg (27.0-32.0); MCV 87.1 FL (80.0-97.0); Mean Platelet Volume 10.4 FL (9.5-12.2); Monocytes % (A) 12.9 %; NRBC Per 100 WBC 0 X 10*3/uL (0.00-0.01); Neutrophils # (A) 3.07 X 10*3/uL (1.80-7.70); Neutrophils % (A) 56.8 %; Platelet Count 237 X 10*3/uL (140-440); RBC 4.28 X 10*6/uL (4.40-5.60); RDW 15.9 % (11.5-14.5); WBC 5.41 X 10*3/uL (4.50-10.00)
[2023-10-11 03:54] LABS: Bacteria,Urine None Seen (None Seen)
== END | disposition home or self-care (01) ==
LOC: LABWHC1 15:58
PROVIDERS: ATTEND Urology
DX: Z01.812 Encounter for preprocedural laboratory examination (principal); N20.1 Calculus of ureter
CPT/HCPCS: 36415; 80048; 81001; 85025; 87086

== ENCOUNTER → 2023-10-15 | Day surgery (SDC) | payer MEDICARE ==
--- NOTE | 2023-10-08 13:49 | P.HPIHPCON ---
History of Present Illness H&P Date: 10/08/23 Chief Complaint: Left ureteral stone This is an 88-year-old male with history of a 7 mm left-sided distal ureteral stone. Status post left-sided stent insertion on September 18. He presents today for definitive stone management. Option of left-sided ureteroscopy with holmium las er was discussed. Aware the risk which includes but not limited to bleeding, infection, injury to the ureter Consent for Procedure: I have explained the operation/procedure to the patient, including the risks, benefits, side effects, alternative therapies (including not receiving the proposed treatment or service), the likelihood of the patient achieving his/her goals, and potential recuperation problems for the procedure/sedation/analgesia, as well as any blood products, if indicated. I also explained to the patient the risks, benefits and side effects of the alternatives, as well as the risks related to not receiving the proposed procedure, care, treatment, or services. Past Medical History Past Medical History: Atrial Fibrillation, Atrial Flutter, Hypertension Additional Past Medical History / Comment(s): SEE DR SNYDER'S H&P. 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 History of Any Multi-Drug Resistant Organisms: C-DIFF Date of last positivie culture/infection: 2014 MDRO Source:: STOOL Past Surgical History: Cardiac Ablation, Heart Catheterization, Pacemaker, Pro state Surgery Additional Past Surgical History / Comment(s): GULSHAN, cardioversion, cardiac ablation for aflutter, TURP, skin cancer removals, colonoscopy, bilateral cataract removals/lens implants. Past Anesthesia/Blood Transfusion Reactions: No Reported Reaction Additional Past Anesthesia/Blood Transfusion Reaction / Comment(s): . Type of Cardiac Device: Permanent Pacemaker Device Placement Date:: 02-01-15 Past Psychological History: No Psychological Hx Reported Smoking Status: Never smoker Past Alcohol Use History: None Reported Past Drug Use History: None Reported - Past Family History Father Family Medical History: Coronary Artery Disease (CAD) Additional Family Medical History / Comment(s): Father at the age of 76yrs. Mother Additional Family Medical History / Comment(s): ASHD, rheumatic heart disease. Mother at the age of 85 yrs. Medications and Allergies Home Medications Medication Instructions Recorded Confirmed Type Multivitamin [Men's Multi-Vitamin] 1 tab PO W/SUPPER 10/16/13 09/18/23 History Pravastatin Sodium [Pravachol] 20 mg PO HS 10/16/13 09/18/23 History Rivaroxaban [Xarelto] 20 mg PO W/SUPPER 10/16/13 09/18/23 History Fludrocortisone [Florinef] 0.1 mg PO DAILY 02/25/18 09/18/23 History Cholecalciferol [Vitamin D3 (25 25 mcg PO DAILY 02/22/23 09/18/23 History Mcg = 1000 Iu)] Metoprolol Succinate [Metoprolol 25 mg PO W/SUPPER 02/22/23 09/18/23 History Succinate ER] Mirtazapine 15 mg PO HS 02/22/23 09/18/23 History sitaGLIPtin [Januvia] 100 mg PO DAILY 02/22/23 09/18/23 History L.acidoph,Paracasei, B.lactis 1 cap PO W/SUPPER 03/18/23 09/18/23 History [Probiotic] Dapagliflozin Propanediol [Farxiga] 10 mg PO DAILY 09/18/23 09/18/23 History Ferrous Sulfate [Iron (65 MG 325 mg PO DAILY 09/18/23 09/18/23 History Elemental)] Acetaminophen Tab [Tylenol] 650 mg PO Q6HR PRN tab 09/22/23 Rx Sulfamethox-Tmp 800-160Mg [Bactrim 1 tab PO Q12HR #28 tab 09/24/23 Rx DS 800-160 mg] Allergies Allergy/AdvReac Type Severity Reaction Status Date / Time amoxicillin trihydrate AdvReac WEAKNESS, Verified 09/18/23 20:48 [From Augmentin] TIRED - AFTER BEING ON FOR SOME TIME ciprofloxacin [From Cipro] AdvReac Unknown Verified 09/18/23 20:48 potassium clavulanate AdvReac WEAKNESS, Verified 09/18/23 20:48 [From Augmentin] TIRED - AFTER BEING ON FOR SOME TIME Surgical - Exam - General no distress, no pain - Eyes normal ocular movement, no pale - ENT normal nares, normal mucosa - Respiratory normal expansion, normal respiratory effort - Abdomen Abdomen: soft, non tender - Psychiatric oriented to time, oriented to person, oriented to place Assessment and Plan Assessment: OR for left-sided ureteroscopy, laser lithotripsy, stone basketing and stent removal
[~2023-10-15] MED LIST changes: +HYDROmorphone 0.5 MG/0.5 ML SYRINGE IVP PRN; +LIDOCAINE 1% (10MG/ML) FOR IV START INTRADERMA PRN; +LIDOCAINE 1% INJ 10MG/ML (20 ML MDV) ONE; +PHENYLEPHRINE 10 MG/ML VIAL ONE; +PROPOFOL 10 MG/ML 20 ML VIAL IV ONE; -SODIUM CHLORIDE 0.9% 1,000 ML IV SCH; +fentaNYL (PF) 50 MCG/ML 2 ML AMP ONE
--- NOTE | 2023-10-15 12:21 | XR ---
EXAMINATION TYPE: XR KUB DATE OF EXAM: 10/15/2023 COMPARISON: 09/07/2011, 09/18/2023 CT scan HISTORY: Urinary calculi TECHNIQUE: One view abdominal series FINDINGS: The osseous structures are intact. The bowel gas pattern is nonspecific. Cardiac leads are noted. Bl unting the right costophrenic angle. Multilevel hypertrophic degenerative changes of the spine with c urvature. A ureteral stent is noted. Calcifications the pelvis could represent a small bladder calcul us. IMPRESSION: 1. A left ureteral stent. There is a 7 mm calcification in the pelvis which could represent a bladder calculus and possibly represent patches of the prior UVJ calculus..
[2023-10-15] MEDS: LACTATED RINGERS 1,000 ML IV ONE ×2 (12:23→14:13)
[2023-10-15] MEDS: ONDANSETRON 4 MG/2 ML VIAL IVP ONE (12:38)
[2023-10-15 12:40] LABS: Glucose,Whole Blood 108 mg/dL (70-110)
--- NOTE | 2023-10-15 14:19 | FL ---
EXAMINATION TYPE: FL urography retrograde DATE OF EXAM: 10/15/2023 COMPARISON: NONE HISTORY: Fluoroscopy time. Fluoroscopy was provided to the referring clinician.
--- NOTE | 2023-10-15 14:40 | P.OP ---
Date of Procedure: 10/15/23 Preoperative Diagnosis: Left ureteral stone Postoperative Diagnosis: Same Procedure(s) Performed: Cystoscopy, left ureteroscopy, retrograde pyelogram and stent removal Implants: none Anesthesia: SHEYLAA Surgeon: Wilber Cortes Estimated Blood Loss (ml): 5 Pathology: none sent Condition: stable Disposition: PACU Indications for Procedure: This is an 88-year-old male with history of a 7 mm left-sided distal ureteral stone. Status post left-sided stent insertion on September 18. He presents today for definitive stone management. Option of left-sided ureteroscopy with holmium laser was discussed. Aware the risk which includes but not limited to bleeding, infection, injury to the ureter Description of Procedure: Patient brought general anesthesia was induced. He was prepped and draped in sterile fashion placed in dorsolithotomy position. Cystoscopy through the 21 English sheath was inserted per urethra, cystoscopy was performed showed no abnormality within the bladder. patient had a TUR defectm Attention was then carried to the left ureteral orifice, the stent was seen protruding from it and was grasped and removed intact. At this time a semirigid ureteroscope was inserted per urethra advanced up the left ureteral orifice, the scope was advanced all the way up to the proximal ureter which showed no evidence of stones, pullback ureteroscopy was performed showed no injury to the ureter or any ureteral stones. Retrograde pyelogram was performed through the ureteroscope to ensure no filling defect in the remaining proximal ureter ureter or within the kidney and there was none. Delayed images were obtained which showed excellent drainage of contrast. At this time the bladder was emptied at the end of the case. Patient tolerated procedure was taken to recovery in stable condition
[2023-10-15 14:43] VITALS: PULSE 69; TEMP 96.8
[2023-10-15 14:54] LABS: Glucose,Whole Blood 82 mg/dL (70-110)
[2023-10-15] MEDS: LACTATED RINGERS 1,000 ML IV SCH (15:18)
[2023-10-15 15:40] VITALS: BP 145/78; RESP 14
== END ==
LOC: OR 11:52
PROVIDERS: ATTEND Urology
DX: N20.1 Calculus of ureter (principal); I11.0 Hypertensive heart disease with heart failure; I50.9 Heart failure, unspecified; I48.0 Paroxysmal atrial fibrillation; N40.0 Benign prostatic hyperplasia without lower urinary tract symptoms; Z79.84 Long term (current) use of oral hypoglycemic drugs; Z88.0 Allergy status to penicillin; Z88.1 Allergy status to other antibiotic agents; Z95.0 Presence of cardiac pacemaker; Z79.899 Other long term (current) drug therapy; Z90.79 Acquired absence of other genital organ(s); Z85.828 Personal history of other malignant neoplasm of skin
CPT/HCPCS: 74420; 74018; 52351; C1769; J0690; J2405; J2001; J3010; J2704; J2371